=== PATIENT | male | born 1980 | race Caucasian/White ===

== ENCOUNTER 2017-02-11 16:10 | Inpatient (IN) | payer OTHER ==
[~2017-02-11] VITALS: Ht 188 cm; Wt 203.1 kg
[~2017-02-11 16:10] MED LIST: ALDACTONE25 MG PO; ALPRAZOLAM1 MG PO; ALTOPREV20 MG PO; AMBIEN CR12.5 MG PO; AMOXICILLIN/CL250 MG PO; AMOXICILLIN500 MG OR; ASPIRIN OR; ASPIRIN325 MG PO; AUGMENTIN500TAB PO; AUGMENTIN875TAB PO; BACTRIM DS1 TAB OR; BUMEX1 M1 PO; CETIRIZ/PSE1 TAB PO; CLINDAMYCIN300 M1 PO; CONTRAVE 8-90 M1 TAB PO; COREG25 MG PO; DICLOXACILL500 MG PO; DOXYCYC MONO100 M1 OR; ENALAPRIL10 MG PO; ENALAPRIL20 MG PO; FUROSEMIDE40 MG PO; GLUCOTROL5 MG PO; HUMALOG KWI100 MG/ML SC; HUMULI1 SC; HUMULIN R1 M1 SC; HYDROCHLORO25 MG/TAB PO; HYDROCHLOROT25 MG PO; HYDROXYZ HCL25 MG PO; INSULIN SC; K-TAB20 MEQ PO; LANTUS SOLOSTAR SC; LANTUS100 MG/ML SC; LASIX 40 MG TAB40 MG PO; LISINOPRIL20 MG OR; LISINOPRIL20 MG PO; LORTAB 1010 MG PO; LORTAB 5 OR; LORTAB 7.57.5 MG PO; LORTAB5 OR; LOSARTAN POT25 MG PO; LOVASTATIN20 M1 PO; LYRICA100 MG PO; LYRICA150 MG PO; LYRICA50 MG PO; MEDDOSEPAK OR; MEDDOSEPAK PO; METFORMIN HCL1000 MG OR; METFORMIN HCL1000 MG PO; METFORMIN500 MG PO; METOPROL TAR100 M1 PO; METOPROL TAR100 MG PO; METOPROL TAR25 MG PO; NAPROSYN500 MG PO; OXYCO/APAP1 TA5 PO; PEN NEEDLE1 SC; PERCOCET 5/325M1 TAB OR; PERCOCET 5/325M1 TAB PO; PERCOCET1 TA1 OR; ROBITUSS12 OR; ST JOSEPH AS81 MG OR; TEMAZEPAM30 MG PO; TRAMADOL HCL50 MG PO; TRICOR145 MG OR; TRICOR145 MG PO; ULTRAM50 MG OR; VASOTEC20 MG PO; VENTOLIN HFA IN; VICTOZA18 MG/3 ML SC; ZOLPIDEM10 M1 PO; ZPAK OR; ZPAK PO; [UNRECOGNIZED DRUG - OTHER] SC; [UNRECOGNIZED DRUG - OTHER] XX; [UNRECOGNIZED DRUG - REMARK] OR; [UNRECOGNIZED DRUG - REMARK] OR
[2017-02-11 16:47] LABS: HEMATOCRIT 27.8 % (39.0-50.0); HEMOGLOBIN 9.7 g/dl (14.0-18.0); IMMATURE GRANULOCYTES 1.2 % (0.0-1.0); MEAN CORPUSCULAR HGB 28.3 pG CALC (26.0-32.0); MEAN CORPUSCULAR HGB CONC 34.9 g/L CALC (32.0-36.0); NEUT# 5.52 thou/uL (1.82-7.42); RED BLOOD COUNT 3.43 mill/uL (4.70-6.10); RED CELL DISTRI WIDTH 14.6 % (11.5-15.5)
[2017-02-11 16:54] LABS: ALBUMIN 4.1 g/dL (3.2-5.0); BILIRUBIN, TOTAL 0.5 mg/dL (0.0-1.4); CALCIUM 9.8 mg/dL (8.4-10.2); CREATININE 2.9 mg/dL (0.7-1.3); POTASSIUM 4.3 mmol/l (3.5-5.1); TOTAL PROTEIN 8.3 g/dL (6.3-8.2)
[2017-02-11 19:17] VITALS: BP 112/64
[2017-02-11 23:15] VITALS: BP 119/73
[2017-02-12] MEDS ORDERED: LOSARTAN POT50 MG PO (03:49)
[2017-02-12 03:56] VITALS: BP 118/74
[2017-02-12 06:33] LABS: HEMATOCRIT 26.6 % (39.0-50.0); HEMOGLOBIN 8.9 g/dl (14.0-18.0); IMMATURE GRANULOCYTES 1.2 % (0.0-1.0); MEAN CELL VOLUME 82.9 fL CALC (80.0-100.0); MEAN CORPUSCULAR HGB 27.7 pG CALC (26.0-32.0); MEAN CORPUSCULAR HGB CONC 33.5 g/L CALC (32.0-36.0); NEUT# 4.92 thou/uL (1.82-7.42); RED BLOOD COUNT 3.21 mill/uL (4.70-6.10); RED CELL DISTRI WIDTH 14.6 % (11.5-15.5)
[2017-02-12 06:54] LABS: ALBUMIN 3.6 g/dL (3.2-5.0); BILIRUBIN, TOTAL 0.4 mg/dL (0.0-1.4); CALCIUM 9.2 mg/dL (8.4-10.2); CREATININE 3.2 mg/dL (0.7-1.3); POTASSIUM 4.3 mmol/l (3.5-5.1); TOTAL PROTEIN 7.3 g/dL (6.3-8.2)
[2017-02-12 08:03] VITALS: BP 120/60
[2017-02-12 11:11] VITALS: BP 115/70
[2017-02-12 15:18] VITALS: BP 112/73
[2017-02-12 21:45] VITALS: BP 143/69
[2017-02-12 23:20] VITALS: BP 145/77
[2017-02-13 03:46] VITALS: BP 120/69
[2017-02-13 07:00] LABS: ALBUMIN 3.7 g/dL (3.2-5.0); BILIRUBIN, TOTAL 0.4 mg/dL (0.0-1.4); CALCIUM 9.3 mg/dL (8.4-10.2); CREATININE 2.6 mg/dL (0.7-1.3); POTASSIUM 4.1 mmol/l (3.5-5.1); TOTAL PROTEIN 7.4 g/dL (6.3-8.2)
[2017-02-13 08:23] VITALS: BP 122/77
[2017-02-13 09:16] LABS: C-REACTIVE PROTEIN 4.7 mg/dL (0-0.9)
[2017-02-13 11:42] VITALS: BP 117/78
[2017-02-13 13:34] LABS: HEMATOCRIT 29.2 % (39.0-50.0); HEMOGLOBIN 9.3 g/dl (14.0-18.0); IMMATURE GRANULOCYTES 0.9 % (0.0-1.0); MEAN CELL VOLUME 85.9 fL CALC (80.0-100.0); MEAN CORPUSCULAR HGB 27.4 pG CALC (26.0-32.0); MEAN CORPUSCULAR HGB CONC 31.8 g/L CALC (32.0-36.0); NEUT# 4.94 thou/uL (1.82-7.42); RED BLOOD COUNT 3.4 mill/uL (4.70-6.10); RED CELL DISTRI WIDTH 15.1 % (11.5-15.5)
[2017-02-13 15:38] VITALS: BP 131/68
[2017-02-13 19:55] VITALS: BP 138/82
[2017-02-14] VITALS (7 sets, daily range): BP systolic 93–151; BP diastolic 54–82
[2017-02-15] VITALS (7 sets, daily range): BP systolic 92–149; BP diastolic 61–84
[2017-02-16] VITALS (11 sets, daily range): BP systolic 98–139; BP diastolic 57–86
[2017-02-16 06:47] LABS: HEMATOCRIT 29.1 % (39.0-50.0); HEMOGLOBIN 9.4 g/dl (14.0-18.0); IMMATURE GRANULOCYTES 1.7 % (0.0-1.0); MEAN CELL VOLUME 85.8 fL CALC (80.0-100.0); MEAN CORPUSCULAR HGB 27.7 pG CALC (26.0-32.0); MEAN CORPUSCULAR HGB CONC 32.3 g/L CALC (32.0-36.0); NEUT# 4.54 thou/uL (1.82-7.42); RED BLOOD COUNT 3.39 mill/uL (4.70-6.10); RED CELL DISTRI WIDTH 14.9 % (11.5-15.5)
[2017-02-16 07:07] LABS: ALBUMIN 3.8 g/dL (3.2-5.0); BILIRUBIN, TOTAL 0.4 mg/dL (0.0-1.4); CALCIUM 9.5 mg/dL (8.4-10.2); CREATININE 2.3 mg/dL (0.7-1.3); TOTAL PROTEIN 7.7 g/dL (6.3-8.2)
[2017-02-16] MEDS ORDERED: METOLAZONE5 MG PO (09:46)
[2017-02-17 00:20] VITALS: BP 98/60
[2017-02-17 04:55] VITALS: BP 127/71
[2017-02-17] MEDS ORDERED: ZOSYN IV (08:43)
[2017-02-17] MEDS ORDERED: DILAUDID4 MG PO (08:44)
[2017-02-17 09:26] VITALS: BP 142/76
[2017-02-17 12:58] VITALS: BP 116/61
[2017-02-17 16:24] VITALS: BP 155/74
[2017-02-17 19:40] VITALS: BP 145/68
[2017-02-18 00:30] VITALS: BP 117/71
[2017-02-18 03:35] VITALS: BP 120/85
[2017-02-18 07:45] VITALS: BP 101/64
[2017-02-18 09:27] VITALS: BP 101/64
== END 2017-02-18 13:02 | DRG 623 ==
LOC: ENPENDDIS → ED 16:10 → ED-I 16:57 → ED 17:16 → MS2 17:17
PROVIDERS: Emergency Medicine; ADMIT Internal Medicine Geriatric Medicine; ATTEND Internal Medicine Geriatric Medicine
PROC: 02HV33Z Insertion of Infusion Device into Superior Vena Cava, Percutaneous Approach (ICD-10-PCS; principal; 2017-02-12)
PROC: B518ZZA Fluoroscopy of Superior Vena Cava, Guidance (ICD-10-PCS; 2017-02-12)
PROC: 0JBR0ZZ Excision of Left Foot Subcutaneous Tissue and Fascia, Open Approach (ICD-10-PCS; 2017-02-16)
DX: E11.621 Type 2 diabetes mellitus with foot ulcer (principal); L97.422 Non-pressure chronic ulcer of left heel and midfoot with fat layer exposed; E11.22 Type 2 diabetes mellitus with diabetic chronic kidney disease; E11.42 Type 2 diabetes mellitus with diabetic polyneuropathy; Z68.43 Body mass index [BMI] 50.0-59.9, adult; E11.65 Type 2 diabetes mellitus with hyperglycemia; E66.01 Morbid (severe) obesity due to excess calories; I12.9 Hypertensive chronic kidney disease with stage 1 through stage 4 chronic kidney disease, or unspecified chronic kidney disease; N18.9 Chronic kidney disease, unspecified; E78.5 Hyperlipidemia, unspecified; M19.90 Unspecified osteoarthritis, unspecified site; I25.10 Atherosclerotic heart disease of native coronary artery without angina pectoris; B96.89 Other specified bacterial agents as the cause of diseases classified elsewhere; Z79.4 Long term (current) use of insulin
CPT/HCPCS: J1650

== ENCOUNTER 2017-03-11 15:44 | Inpatient (IN) | payer OTHER ==
[~2017-03-11] VITALS: Ht 188 cm; Wt 197.0 kg
[2017-03-11] VITALS (8 sets, daily range): BP systolic 135–189; BP diastolic 81–92
[~2017-03-11 15:44] MED LIST changes: +DILAUDID4 MG PO; +LOSARTAN POT50 MG PO; +METOLAZONE5 MG PO; +ZOSYN IV
[2017-03-12 04:40] VITALS: BP 122/81
[2017-03-12 04:48] LABS: HEMATOCRIT 30.8 % (39.0-50.0); HEMOGLOBIN 9.7 g/dl (14.0-18.0); IMMATURE GRANULOCYTES 0.5 % (0.0-1.0); MEAN CELL VOLUME 87.5 fL CALC (80.0-100.0); MEAN CORPUSCULAR HGB 27.6 pG CALC (26.0-32.0); MEAN CORPUSCULAR HGB CONC 31.5 g/L CALC (32.0-36.0); NEUT# 3.28 thou/uL (1.82-7.42); RED BLOOD COUNT 3.52 mill/uL (4.70-6.10); RED CELL DISTRI WIDTH 16.2 % (11.5-15.5)
[2017-03-12 05:01] LABS: ALBUMIN 3.6 g/dL (3.2-5.0); BILIRUBIN, TOTAL 0.4 mg/dL (0.0-1.4); POTASSIUM 4.4 mmol/l (3.5-5.1)
[2017-03-12 08:06] VITALS: BP 104/58
[2017-03-12 08:41] VITALS: BP 160/58
[2017-03-12 10:52] VITALS: BP 148/80
[2017-03-12] MEDS ORDERED: NOVOLIN 70/30 SC (11:15)
[2017-03-12] MEDS ORDERED: HUMALOG100 UNIT/M (11:19)
[2017-03-12] MEDS ORDERED: ROCEPHIN 2 GM2 GM IV (13:59)
[2017-03-12] MEDS ORDERED: FLEXERIL5 M1 PO (14:06)
[2017-03-12] MEDS ORDERED: ROPINIROLE0.5 MG PO (14:06)
== END 2017-03-12 18:17 | DRG 623 ==
LOC: ENPENDDIS → MS2 15:44
PROVIDERS: ADMIT Internal Medicine Geriatric Medicine; ATTEND Internal Medicine Geriatric Medicine
PROC: 0JBR0ZZ Excision of Left Foot Subcutaneous Tissue and Fascia, Open Approach (ICD-10-PCS; principal; 2017-03-11)
PROC: 02HV33Z Insertion of Infusion Device into Superior Vena Cava, Percutaneous Approach (ICD-10-PCS; 2017-03-12)
PROC: B518ZZA Fluoroscopy of Superior Vena Cava, Guidance (ICD-10-PCS; 2017-03-12)
DX: E11.628 Type 2 diabetes mellitus with other skin complications (principal); L03.116 Cellulitis of left lower limb; L97.422 Non-pressure chronic ulcer of left heel and midfoot with fat layer exposed; N18.4 Chronic kidney disease, stage 4 (severe); E11.621 Type 2 diabetes mellitus with foot ulcer; E11.22 Type 2 diabetes mellitus with diabetic chronic kidney disease; Z68.43 Body mass index [BMI] 50.0-59.9, adult; E11.65 Type 2 diabetes mellitus with hyperglycemia; E11.42 Type 2 diabetes mellitus with diabetic polyneuropathy; E66.01 Morbid (severe) obesity due to excess calories; I12.9 Hypertensive chronic kidney disease with stage 1 through stage 4 chronic kidney disease, or unspecified chronic kidney disease; K21.9 Gastro-esophageal reflux disease without esophagitis; F17.200 Nicotine dependence, unspecified, uncomplicated; G25.81 Restless legs syndrome; Z79.4 Long term (current) use of insulin

== ENCOUNTER 2017-11-05 15:12 | Inpatient (IN) | payer OTHER ==
[~2017-11-05] VITALS: Ht 188 cm; Wt 225.6 kg
[~2017-11-05 15:12] MED LIST changes: +FLEXERIL5 M1 PO; +HUMALOG100 UNIT/M; +NOVOLIN 70/30 SC; +ROCEPHIN 2 GM2 GM IV; +ROPINIROLE0.5 MG PO
[2017-11-05 16:15] VITALS: BP 134/67
[2017-11-05 17:01] LABS: HEMATOCRIT 30.9 % (39.0-50.0); HEMOGLOBIN 9.6 g/dl (14.0-18.0); IMMATURE GRANULOCYTES 0.6 % (0.0-1.0); MEAN CELL VOLUME 89.6 fL CALC (80.0-100.0); MEAN CORPUSCULAR HGB 27.8 pG CALC (26.0-32.0); MEAN CORPUSCULAR HGB CONC 31.1 g/L CALC (32.0-36.0); NEUT# 4.73 thou/uL (1.82-7.42); RED BLOOD COUNT 3.45 mill/uL (4.70-6.10)
[2017-11-05 18:00] LABS: CREATININE 2.6 mg/dL (0.7-1.3)
[2017-11-05 20:25] VITALS: BP 143/84
[2017-11-06 04:55] VITALS: BP 150/68
[2017-11-06 05:25] LABS: ALBUMIN 3.6 g/dL (3.2-5.0); BILIRUBIN, TOTAL 0.4 mg/dL (0.0-1.4); CREATININE 2.5 mg/dL (0.7-1.3); POTASSIUM 4.7 mmol/l (3.5-5.1)
[2017-11-06 08:08] VITALS: BP 135/74
[2017-11-06 09:23] LABS: URINE BILIRUBIN - DIPSTICK NEGATIVE (NEGATIVE); URINE BLOOD DIPSTICK SMALL (NEGATIVE); URINE COLOR YELLOW; URINE GLUCOSE - DIPSTICK NEGATIVE (NEGATIVE); URINE KETONE NEGATIVE (NEGATIVE); URINE LEUK ESTERASE NEGATIVE (NEGATIVE); URINE NITRITE - DIPSTICK NEGATIVE (Negative); URINE PH 5.5 (4.5-8.0); URINE PROTEIN - DIPSTICK 100 mg/dL (NEG-TRACE); URINE SPECIFIC GRAVITY 1.015; URINE UROBILINOGEN - DIPSTICK 0.2 E.U./dL (0.2)
[2017-11-06 09:24] LABS: URINE CLARITY SL CLOUDY
[2017-11-06 09:25] LABS: URINE MUCUS MODERATE hpf (NONE-FEW)
[2017-11-06 16:55] VITALS: BP 148/81
[2017-11-07 04:35] VITALS: BP 163/93
[2017-11-07 05:00] LABS: HEMATOCRIT 32.2 % (39.0-50.0); HEMOGLOBIN 10.2 g/dl (14.0-18.0); IMMATURE GRANULOCYTES 0.5 % (0.0-1.0); MEAN CELL VOLUME 88.7 fL CALC (80.0-100.0); MEAN CORPUSCULAR HGB 28.1 pG CALC (26.0-32.0); MEAN CORPUSCULAR HGB CONC 31.7 g/L CALC (32.0-36.0); NEUT# 4.01 thou/uL (1.82-7.42); RED BLOOD COUNT 3.63 mill/uL (4.70-6.10); RED CELL DISTRI WIDTH 14.9 % (11.5-15.5)
[2017-11-07 05:07] LABS: ALBUMIN 3.5 g/dL (3.2-5.0); BILIRUBIN, TOTAL 0.4 mg/dL (0.0-1.4); CREATININE 2.3 mg/dL (0.7-1.3); POTASSIUM 4.4 mmol/l (3.5-5.1)
[2017-11-07 07:48] VITALS: BP 133/93
[2017-11-07 08:57] VITALS: BP 133/93
[2017-11-07] MEDS ORDERED: VANCOMYCIN IV (09:10)
[2017-11-08] MEDS ORDERED: LYRICA50 MG PO (16:11)
[2017-11-08] MEDS ORDERED: PAXIL30 MG PO (16:12)
[2017-11-08] MEDS ORDERED: XANAX1 MG PO (16:12)
== END 2017-11-07 10:50 | DRG 292 ==
LOC: MS2 15:12
PROVIDERS: ADMIT Internal Medicine Geriatric Medicine; ATTEND Internal Medicine Geriatric Medicine
DX: I13.0 Hypertensive heart and chronic kidney disease with heart failure and stage 1 through stage 4 chronic kidney disease, or unspecified chronic kidney disease (principal); I50.1 Left ventricular failure, unspecified; N18.4 Chronic kidney disease, stage 4 (severe); E10.22 Type 1 diabetes mellitus with diabetic chronic kidney disease; E10.621 Type 1 diabetes mellitus with foot ulcer; Z68.43 Body mass index [BMI] 50.0-59.9, adult; L97.419 Non-pressure chronic ulcer of right heel and midfoot with unspecified severity; E10.65 Type 1 diabetes mellitus with hyperglycemia; E66.01 Morbid (severe) obesity due to excess calories; I25.10 Atherosclerotic heart disease of native coronary artery without angina pectoris; J44.9 Chronic obstructive pulmonary disease, unspecified; G47.30 Sleep apnea, unspecified; K21.9 Gastro-esophageal reflux disease without esophagitis; F41.9 Anxiety disorder, unspecified; F32.9 Major depressive disorder, single episode, unspecified; M19.90 Unspecified osteoarthritis, unspecified site; E03.9 Hypothyroidism, unspecified; M85.80 Other specified disorders of bone density and structure, unspecified site; B95.61 Methicillin susceptible Staphylococcus aureus infection as the cause of diseases classified elsewhere; Z79.4 Long term (current) use of insulin
CPT/HCPCS: J3370

== ENCOUNTER 2018-01-07 10:43 | Emergency (ER) | payer OTHER ==
[~2018-01-07] VITALS: Ht 188 cm; Wt 215.0 kg
[~2018-01-07 10:43] MED LIST changes: +PAXIL30 MG PO; +VANCOMYCIN IV; +XANAX1 MG PO
[2018-01-07 11:30] LABS: HEMATOCRIT 31.2 % (39.0-50.0); HEMOGLOBIN 10.1 g/dl (14.0-18.0); IMMATURE GRANULOCYTES 1.3 % (0.0-1.0); MEAN CELL VOLUME 86.4 fL CALC (80.0-100.0); MEAN CORPUSCULAR HGB CONC 32.4 g/L CALC (32.0-36.0); NEUT# 5.89 thou/uL (1.82-7.42); RED BLOOD COUNT 3.61 mill/uL (4.70-6.10)
[2018-01-07] MEDS ORDERED: AMBIEN5 MG PO (11:40)
[2018-01-07] MEDS ORDERED: FERR SULFATE325 MG PO (11:40)
[2018-01-07] MEDS ORDERED: LYRICA25 MG PO (11:41)
[2018-01-07] MEDS ORDERED: TORSEMIDE20 M1 PO (11:41)
[2018-01-07] MEDS ORDERED: HEMOCYTE PLU PO (11:42)
[2018-01-07] MEDS ORDERED: ENALAPRIL5 MG PO (11:42)
[2018-01-07] MEDS ORDERED: FLEXERIL5 MG PO (11:43)
[2018-01-07] MEDS ORDERED: CLONIDINE0.1 MG PO (11:43)
[2018-01-07] MEDS ORDERED: ROPINIROLE0.5 MG PO (11:44)
[2018-01-07] MEDS ORDERED: CYMBALTA60 MG PO (11:44)
[2018-01-07] MEDS ORDERED: DULOXETINE HCL30 MG PO (11:45)
[2018-01-07] MEDS ORDERED: LOVASTATIN40 M1 PO (11:45)
[2018-01-07] MEDS ORDERED: SANTYL250 UNIT/G (11:46)
[2018-01-07] MEDS ORDERED: MUPIROCIN21 (11:46)
[2018-01-07 11:56] LABS: CREATININE 3.6 mg/dL (0.7-1.3)
[2018-01-07 11:57] LABS: POTASSIUM 5.4 mmol/l (3.5-5.1)
[2018-01-07 15:44] VITALS: BP 125/60
== END 2018-01-07 15:40 | disposition short-term general hospital (02) | DRG 292 ==
LOC: ED 10:43
PROVIDERS: Family Medicine
PROC: 0T9B70Z Drainage of Bladder with Drainage Device, Via Natural or Artificial Opening (ICD-10-PCS; principal; 2018-01-07)
PROC: 02HV33Z Insertion of Infusion Device into Superior Vena Cava, Percutaneous Approach (ICD-10-PCS; 2018-01-07)
PROC: 0BH17EZ Insertion of Endotracheal Airway into Trachea, Via Natural or Artificial Opening (ICD-10-PCS; 2018-01-07)
PROC: 5A09357 Assistance with Respiratory Ventilation, Less than 24 Consecutive Hours, Continuous Positive Airway Pressure (ICD-10-PCS; 2018-01-07)
DX: I13.0 Hypertensive heart and chronic kidney disease with heart failure and stage 1 through stage 4 chronic kidney disease, or unspecified chronic kidney disease (principal); L03.115 Cellulitis of right lower limb; E11.22 Type 2 diabetes mellitus with diabetic chronic kidney disease; I50.9 Heart failure, unspecified; E66.01 Morbid (severe) obesity due to excess calories; N18.9 Chronic kidney disease, unspecified; G47.30 Sleep apnea, unspecified; G25.81 Restless legs syndrome; M19.90 Unspecified osteoarthritis, unspecified site; J44.9 Chronic obstructive pulmonary disease, unspecified; K21.9 Gastro-esophageal reflux disease without esophagitis; E03.9 Hypothyroidism, unspecified

== ENCOUNTER 2018-02-02 13:31 | Observation (INO) | payer OTHER ==
[~2018-02-02] VITALS: Ht 188 cm; Wt 204.0 kg
[2018-02-02] VITALS (8 sets, daily range): BP systolic 135–157; BP diastolic 67–85
[~2018-02-02 13:31] MED LIST changes: +AMBIEN5 MG PO; +CLONIDINE0.1 MG PO; +CYMBALTA60 MG PO; +DULOXETINE HCL30 MG PO; +ENALAPRIL5 MG PO; +FERR SULFATE325 MG PO; +FLEXERIL5 MG PO; +HEMOCYTE PLU PO; +LOVASTATIN40 M1 PO; +LYRICA25 MG PO; +MUPIROCIN21; +SANTYL250 UNIT/G; +TORSEMIDE20 M1 PO
--- NOTE | 2018-02-02 13:49 | NUR ---
PT CAME IN DIRECT ADMIT VIA WHEELCHAIR AT SIDE. WEB ANALYST IN ROOM FOR STAND BY ASSIST TO SCALE AND THEN TO BED. SAFETY PRECAUTIONS REINFORCED AND CALL LIGHT IN REACH.
[2018-02-02 14:37] LABS: HEMOGLOBIN 8.1 g/dl (14.0-18.0); IMMATURE GRANULOCYTES 0.7 % (0.0-1.0); MEAN CELL VOLUME 93.1 fL CALC (80.0-100.0); MEAN CORPUSCULAR HGB 27.9 pG CALC (26.0-32.0); NEUT# 3.61 thou/uL (1.82-7.42); RED BLOOD COUNT 2.9 mill/uL (4.70-6.10); RED CELL DISTRI WIDTH 17.8 % (11.5-15.5)
[2018-02-02 14:56] LABS: CREATININE 2.3 mg/dL (0.7-1.3); POTASSIUM 4.9 mmol/l (3.5-5.1)
--- NOTE | 2018-02-02 15:14 | NUR ---
CALLED DR. RODRIGUEZ RE: PT ABG PH [phone]. NO ORDRES RECEIVED AT THIS TIME.
[2018-02-02] MEDS ORDERED: DOXYCYC MONO100 M2 PO (16:51)
[2018-02-02] MEDS ORDERED: LORTAB 1010 MG PO (16:52)
[2018-02-02] MEDS ORDERED: DIFLUCAN100 MG PO (16:52)
[2018-02-02] MEDS ORDERED: TIZANIDINE4 MG PO (16:53)
[2018-02-02] MEDS ORDERED: [UNRECOGNIZED DRUG - OTHER] IV (16:55)
[2018-02-02] MEDS ORDERED: PIPER IV (16:55)
--- NOTE | 2018-02-02 17:38 | NUR ---
BLOOD TRANSFUSION STARTED AND EXLPAIN THE SIDE OF EFFECT. PT VERBALIZED UNDERSTANDING. ASSESSMENT DONE . RESPS EVEN AND UNLABORED. PT HAS WOUND VAC ON RIGHT FOOT FROM HOME. PT STATED THAT HOME HEALTH CHANGE IT TODAY. PT DENIES ANY OTHER NEEDS AT THIS TIME. CALL LIGHT IN REACH.
--- NOTE | 2018-02-02 19:52 | NUR ---
PT IN BED WITH EYES CLOSED, RESPONDS EASILY TO VERBAL COMMAND, A/O X3, RESPIRATIONS EVEN AND UNLABORED ON RA. 1ST UNIT OF PRBC'S COMPLETE AT THIS TIME. WOUND VAC IN PLACE TO RIGHT LEG, CONTINUOUS 125MMHG, DRESSING WAS CHANGED TODAY BY HH PER FAMILY. DENIES PAIN AT THIS TIME, ENCOURAGED TO USE CALL LIGHT FOR ASSISTANCE. WILL CONTINUE TO MONITOR.
--- NOTE | 2018-02-02 20:30 | NUR ---
LASIX IV GIVEN PER MAR AFTER 1ST UNITS OF PRBC'S, 2ND UNITS SPIKED BY JAKOB RATLIFF, INFUSING WITH NO COMPLICATIONS, CALL LIGHT IN REACH.
--- NOTE | 2018-02-02 21:44 | NUR ---
ACCUCHECK 206, COVERED WITH 4UNITS OF NOVULOG INSULIN SQ, TOLERATED WELL. C/O RIGHT FOOT PAIN 5/10, MEDICATED WITH DILAUDID 2MG PO. WEARING OWN CPAP FROM HOME. 2ND UNIT OF PRBC INFUSING WITH NO COMPLICAITONS, CALL LIGHT IN REACH.
--- NOTE | 2018-02-02 22:26 | NUR ---
2ND UNIT OF PRBC COMPLETE, TOLERATED WELL.
[2018-02-03] VITALS (11 sets, daily range): BP systolic 120–146; BP diastolic 57–89
--- NOTE | 2018-02-03 00:30 | NUR ---
OOB TO BATHROOM WITH STEADY GAIT, VOIDING CLEAR YELLOW URINE, BACK TO BED. CALL LIGHT IN REACH.
[2018-02-03 00:35] LABS: URINE BILIRUBIN - DIPSTICK NEGATIVE (NEGATIVE); URINE BLOOD DIPSTICK SMALL (NEGATIVE); URINE COLOR YELLOW; URINE GLUCOSE - DIPSTICK NEGATIVE (NEGATIVE); URINE KETONE NEGATIVE (NEGATIVE); URINE LEUK ESTERASE NEGATIVE (NEGATIVE); URINE NITRITE - DIPSTICK NEGATIVE (Negative); URINE PROTEIN - DIPSTICK 100 mg/dL (NEG-TRACE); URINE UROBILINOGEN - DIPSTICK 0.2 E.U./dL (0.2)
[2018-02-03 00:38] LABS: URINE CLARITY CLEAR
[2018-02-03 00:45] LABS: URINE MUCUS FEW hpf (NONE-FEW); URINE SQUAMOUS EPITHELIAL CELL FEW EPI/hpf (0-FEW); URINE WBC 0-2 WBC/hpf (0-5)
--- NOTE | 2018-02-03 04:29 | NUR ---
MORNING BLOOD WORK DRAWN FROM PICC LINE, GREAT BLOOD RETURN, PT DROWSY, RESPONDS EASILY TO VERBAL COMMAND, WEARING CPAP FROM HOME.
[2018-02-03 05:30] LABS: HEMATOCRIT 26.3 % (39.0-50.0); HEMOGLOBIN 8.1 g/dl (14.0-18.0); IMMATURE GRANULOCYTES 0.5 % (0.0-1.0); MEAN CELL VOLUME 91.6 fL CALC (80.0-100.0); MEAN CORPUSCULAR HGB 28.2 pG CALC (26.0-32.0); MEAN CORPUSCULAR HGB CONC 30.8 g/L CALC (32.0-36.0); NEUT# 4.05 thou/uL (1.82-7.42); RED BLOOD COUNT 2.87 mill/uL (4.70-6.10); RED CELL DISTRI WIDTH 17.4 % (11.5-15.5)
[2018-02-03 05:46] LABS: ALBUMIN 2.9 g/dL (3.2-5.0); BILIRUBIN, TOTAL 0.4 mg/dL (0.0-1.4); CREATININE 2.1 mg/dL (0.7-1.3); POTASSIUM 4.7 mmol/l (3.5-5.1)
--- NOTE | 2018-02-03 07:00 | NUR ---
BEDSIDE REPORT RECEIVED BY MAHESH. PT IS SITTING IN THE SIDE OF THE BED WITH NO S/S OF DISTRESS NOTED. PT DENIES NEEDS AT THIS TIME. CALL LIGHT IN REACH.
--- NOTE | 2018-02-03 07:32 | NUR ---
FIRST UNIT OF BLOOD BEGIN. EXPLAIN TO PT OF SIDE OF EFFECTS . PT VERBALZIED UNDERSTANING. ASSESSMENT DONE RESPS EVEN AND UNLABORED. POC DISCUSSED WITH PT SAFETY PRECAUTIONS REINFORCED AND CALL LIGHT IN REACH.
--- NOTE | 2018-02-03 10:57 | NUR ---
SECOND UNIT BEGIN. PT DENIES NEEDS A T THIS TIME. NO S/S OF DISTRESS NOTED.
--- NOTE | 2018-02-03 12:00 | NUR ---
PT IS SITTING IN RECLINER EATING HIS LUNCH WITH NO S/S OF DISTRESS NOTED. PT HAS HIS WOUND VAC IN PLACE ON RIGHT FOOT. PT DENIES NEEDS AT THIS TIME. CALL LIGHT IN REACH.
--- NOTE | 2018-02-03 13:14 | NUR ---
SECOND UNIT OF BLOOD DONE. PT DENIES NEEDS AT THIS TIME. CALL LIGHT IN REACH.
--- NOTE | 2018-02-03 16:00 | NUR ---
PT IS RESTING IN BED WITH NO S/S OF DISTRESS NOTED. RIGHT LEG ELEVATED. CALL LIGHT IN REACH.
--- NOTE | 2018-02-03 19:15 | NUR ---
PT RESTING IN BED. FAMILY IN ROOM. PT IS ALERT AND ORIENTED [id number]. SHIFT ASSESSMENT COMPLETED AT THIS TIME. PT REQUESTING TO BE DISCHARGED. INFORMED PT THAT WE WERE AWAITING LAB RESULTS AND I WOULD NOTIFY MD FOR ORDERS. PT VERBALIZED UNDERSTANDING. CALL LIGHT IN REACH. WILL CONTINUE TO MONITOR
[2018-02-03 19:17] LABS: HEMATOCRIT 31.5 % (39.0-50.0); HEMOGLOBIN 9.9 g/dl (14.0-18.0)
--- NOTE | 2018-02-03 19:30 | NUR ---
DR RODRIGUEZ NOTIFIED OF LAB RESULTS AND PT REQUEST TO GO HOME. DC ORDERS RECEIVED. PT NOTIFIED.
--- NOTE | 2018-02-03 19:58 | NUR ---
Discharged to: Home Discharged via: Wheelchair Accompanied by: family D/C Condition: stable Diet: 1800 MANDY ADA Diet modification: low sodium Activity: As tolerated Home Health: OTHER Follow up appointment: FOLOW UP WITH DR RODRIGUEZ IN 1 WEEK Special instructions: FOLLOW UP WITH DR RODRIGUEZ'S OFFICE NEXT WEEK. HAVE LABS DRAWN AT [facility] ON 02/08/18 Medications: SEE MEDICATION RECONCILIATION FORM Prescriptions Given: Please notify your physician if you received either one of these vaccinations: Influenza Vaccine - Date: Pneumococcal Vaccine - Date: Patient Education Materials Provided: Yes - Food and Drug Interaction Guide No - Anticoagulation Education Booklet Contains the following information: 1. Compliance issues 2. Dietary advice 3. Follow up monitoring 4. Potential for adverse drug reactions and interactions No - Smoking Cessation Booklet IF SYMPTOMS WORSEN, OR IF YOU HAVE ADDITIONAL QUESTIONS, PLEASE CONTACT YOUR PERSONAL PHYSICIAN OR SEEK EMERGENCY CARE. CALL YOUR PHYSICIAN IF YOU DO NOT GET RELIEF FROM THE PAIN MEDICATIONS PRESCRIBED, OR IF THE INTENSITY OF PAIN INCREASES, OR IF PAIN IS INTERFERING WITH ACTIVITY OR REST. IF YOU SMOKE, YOU NEED TO QUIT. IT IS GOOD FOR YOU AND EVERYONE AROUND YOU! Your physician and [facility] care about you and your health. The facts are clear. Smoking causes 1 out of 5 deaths in the [place] each year. It is the major preventable cause of emphysema, lung cancer, chronic bronchitis, heart disease and stroke. Quitting is one of the best things you can ever do for yourself and those you love. What better time to quit than now! You've already been cigarette free during your stay. Studies have shown that the first 48 hours of quitting are the toughest. Just a few of the benefits your body begins to experience are blood pressure returns to normal, the carbon monoxide level in your blood drops to normal, your chance of heart attack decreases, and your ability to smell and taste is enhanced. Here are some resources that you may find helpful: [place] [employer] [place] [employer] www.lungusa.org www.cancer.org [place] [employer] [place] Department of Health (Tobacco Prevention and Control Program) www.americanheart.org www.[place].state.fl.us Finally don't forget that your doctor may be able to help you. Whichever method you choose will be good for you. IF YOU HAVE A DIAGNOSIS OF CONGESTIVE HEART FAILURE, THERE ARE SEVERAL ADDITIONAL INSTRUCTIONS FOR YOU TO FOLLOW UPON DISCHARGE FROM THE HOSPITAL. Weigh yourself every day and if weight gain is greater than 2 pounds in a day, call your physican. If you experience worsening symptoms such as: Problems with breathing or shortness of breath Ankle/foot/leg swelling Unexplained weight gain greater than 2 pounds Call your physician or come to the emergency room. IF YOU HAVE A DIAGNOSIS OF STROKE, THERE ARE SEVERAL ADDITIONAL INSTRUCTIONS FOR YOU TO FOLLOW: A stroke occurs when something happens to interrupt the steady flow of blood to the brain, like a clot or a burst in a blood vessel. Brain cells quickly begin to . These INCREASE your chance of having a STROKE: * Smoking * High blood pressure * Diabetes * Obesity WARNING SIGNS OR SYMPTOMS: * Sudden weakness on one side of body. * Sudden confusion, trouble speaking or understanding. * Sudden trouble seeing. * Sudden trouble walking or loss of balance. * Sudden severe headache with no known cause. CALL 04-30- At Any Sign of Stroke. You can beat a stroke. Disabilities can be prevented or limited, but you have must go to the Emergency Department immediately. Go in an Ambulance. Save Time. Be Seen Faster! If you were admitted to the hospital for a stroke After DISCHARGE you must: * Keep ALL follow up appointments. * Take your medications as ordered by your doctor. * Do not take any other drugs without checking with your doctor first. * Do not drive unless your doctor says it is okay. * Call your doctor with any questions or concerns. IF YOU WERE DISCHARGED ON COUMADIN/WARFARIN ANTICOAGULATION THERAPY, THERE ARE SEVERAL ADDITIONAL INSTRUCTIONS FOR YOU TO FOLLOW: Anticoagulants are medications that help prevent blood clots. They are often prescribed for people with certain heart, lung and blood vessel diseases to help prevent heart attacks and strokes. IMPORTANT Anticoagulation medications have been used for many years, but it can be difficult to manage. That's because many factors can affect how they work-including small changes in dose or dose timing, what you eat or drink, other medications and stress. You and your doctor must work closely together to manage this important medication. * Take your medicine EXACTLY as instructed by your doctor. * You must have your blood drawn for PT/INR to monitor your medication. * Do not take any new medications, vitamins or herbal supplements without asking your doctor first. FOODS: * Eat the same amount of foods that contain Vitamin K every day. * Avoid or limit alcohol. * Avoid major changes in diet or notify your doctor first. FOLLOW UP MONITORING: See your physician within one week to monitor your condition. You will need to have blood tests performed to monitor the medication. DRUG INTERACTIONS: * Diet and medications can affect the PT/INR level. * Do not take or discontinue any medication or over the counter medication unless your doctor okays. * Warfarin/Coumadin increases the risk of bleeding. CALL YOUR PHYSICIAN IF: If you notice any signs of increased bleedin. Excessive bruising. 2. Abnormal bleeding from nose or gums. 3. [place], red or dark brown urine. 4. Minor bleeding or bright red blood from the bowel. CALL 911 OR GO TO THE HOSPITAL IF: 1. You have black tarry stools. 2. Sudden dizziness, faintness or weakness. 3. Cold or numbness in arm or leg. 4. Sudden chest pain. 5. Trouble talking or moving one side of body. 6. Coughing or vomiting bright red blood. 7. Severe headache or stomach pain. 8. Serious fall or hit to the head. Visit our website at [email or web address] You are going home today. Depending on your insurance coverage, you may be receiving a bill from the hospital for your hospital stay. If you have any question about your bill, please call the Business Office at [phone] or contact us at our web address: [email or web address]. If applicable, I have received my medication information as recommeded by my provider upon discharge. I have read and understand the above discharge instructions. Pt Signature: Date: Time: Witnessed by: Date: Time: Complete the record of communication to the next provider below. These discharge instructions, including discharge medications, is to be faxed to the next provider at the time of the patient's discharge. ____These instructions faxed to next Provider (Provider Name) on (Date) @ (Time) . ____The second provider involved in patient care following discharge has been faxed this information. These instructions faxed to (Provider-Home Health, Physical Therapy, Agency) on (Date) @ (Time) . OR ____Patient unable/unwilling to verbalize who the next provider of care will be, instructed patient to take these instructions to next appointment with healthcare provider.
--- NOTE | 2018-02-03 20:20 | NUR ---
Discharge instructions given. Patient verbalizes understanding of same. Discharged in stable condition via Wheelchair to Home with family. All belongings sent with pt.
== END 2018-02-03 20:20 | disposition home or self-care (01) | DRG 812 ==
LOC: MS2 13:31
PROVIDERS: ADMIT Internal Medicine Geriatric Medicine; ATTEND Internal Medicine Geriatric Medicine
PROC: 30233N1 Transfusion of Nonautologous Red Blood Cells into Peripheral Vein, Percutaneous Approach (ICD-10-PCS; principal; 2018-02-02)
PROC: 30233N1 Transfusion of Nonautologous Red Blood Cells into Peripheral Vein, Percutaneous Approach (ICD-10-PCS; 2018-02-02)
PROC: 30233N1 Transfusion of Nonautologous Red Blood Cells into Peripheral Vein, Percutaneous Approach (ICD-10-PCS; 2018-02-03)
PROC: 30233N1 Transfusion of Nonautologous Red Blood Cells into Peripheral Vein, Percutaneous Approach (ICD-10-PCS; 2018-02-03)
DX: D50.9 Iron deficiency anemia, unspecified (principal); E10.22 Type 1 diabetes mellitus with diabetic chronic kidney disease; E10.42 Type 1 diabetes mellitus with diabetic polyneuropathy; M86.8X7 Other osteomyelitis, ankle and foot; E66.01 Morbid (severe) obesity due to excess calories; Z68.43 Body mass index [BMI] 50.0-59.9, adult; I13.0 Hypertensive heart and chronic kidney disease with heart failure and stage 1 through stage 4 chronic kidney disease, or unspecified chronic kidney disease; L97.429 Non-pressure chronic ulcer of left heel and midfoot with unspecified severity; N18.4 Chronic kidney disease, stage 4 (severe); E10.621 Type 1 diabetes mellitus with foot ulcer; E10.69 Type 1 diabetes mellitus with other specified complication; J44.9 Chronic obstructive pulmonary disease, unspecified; G47.30 Sleep apnea, unspecified; M19.90 Unspecified osteoarthritis, unspecified site; I50.9 Heart failure, unspecified; E03.9 Hypothyroidism, unspecified; K21.9 Gastro-esophageal reflux disease without esophagitis; G25.81 Restless legs syndrome; Z79.4 Long term (current) use of insulin
CPT/HCPCS: G0378; P9016

== ENCOUNTER 2018-06-15 17:59 | Emergency (ER) | payer OTHER ==
[~2018-06-15] VITALS: Ht 188 cm; Wt 222.3 kg
[~2018-06-15 17:59] MED LIST changes: +DIFLUCAN100 MG PO; +DOXYCYC MONO100 M2 PO; +PIPER IV; +TIZANIDINE4 MG PO; +[UNRECOGNIZED DRUG - OTHER] IV
[2018-06-15] MEDS ORDERED: B121000 MCG PO (18:40)
[2018-06-15 18:44] LABS: HEMATOCRIT 31.6 % (39.0-50.0); HEMOGLOBIN 9.7 g/dl (14.0-18.0); IMMATURE GRANULOCYTES 0.7 % (0.0-5.0); MEAN CELL VOLUME 87.8 fL CALC (80.0-100.0); MEAN CORPUSCULAR HGB 26.9 pG CALC (26.0-32.0); MEAN CORPUSCULAR HGB CONC 30.7 g/L CALC (32.0-36.0); NEUT# 4.04 thou/uL (1.82-7.42); RED BLOOD COUNT 3.6 mill/uL (4.70-6.10); RED CELL DISTRI WIDTH 16.4 % (11.5-15.5)
[2018-06-15] MEDS ORDERED: BUMETANIDE1 MG PO (18:46)
[2018-06-15 18:57] LABS: ALBUMIN 3.3 g/dL (3.2-5.0); BILIRUBIN, TOTAL 0.3 mg/dL (0.0-1.4); CREATININE 2.5 mg/dL (0.7-1.3); POTASSIUM 4.9 mmol/l (3.5-5.1); TOTAL PROTEIN 6.6 g/dL (6.3-8.2)
[2018-06-15] MEDS ORDERED: CARAFATE PO (19:09)
[2018-06-15] MEDS ORDERED: PROBIOTIC1 TAB PO (19:10)
[2018-06-15] MEDS ORDERED: OMEPRAZOLE20 MG PO (19:10)
[2018-06-15] MEDS ORDERED: METOPROL TAR100 MG PO (19:13)
[2018-06-15 20:05] VITALS: BP 148/82
== END 2018-06-15 20:05 | disposition home or self-care (01) | DRG 699 ==
LOC: ED 17:59 → ED-I 19:28 → ED 20:05
PROVIDERS: Emergency Medicine
DX: E10.22 Type 1 diabetes mellitus with diabetic chronic kidney disease (principal); I13.0 Hypertensive heart and chronic kidney disease with heart failure and stage 1 through stage 4 chronic kidney disease, or unspecified chronic kidney disease; N18.4 Chronic kidney disease, stage 4 (severe); I50.9 Heart failure, unspecified; E66.01 Morbid (severe) obesity due to excess calories; G47.30 Sleep apnea, unspecified; G25.81 Restless legs syndrome; M19.90 Unspecified osteoarthritis, unspecified site; J44.9 Chronic obstructive pulmonary disease, unspecified; K21.9 Gastro-esophageal reflux disease without esophagitis; E03.9 Hypothyroidism, unspecified

== ENCOUNTER 2018-06-28 17:17 | Observation (INO) | payer OTHER ==
[~2018-06-28] VITALS: Ht 185.4 cm; Wt 218.0 kg
[~2018-06-28 17:17] MED LIST changes: +B121000 MCG PO; +BUMETANIDE1 MG PO; +CARAFATE PO; +OMEPRAZOLE20 MG PO; +PROBIOTIC1 TAB PO
[2018-06-28 17:30] VITALS: BP 150/84
[2018-06-28 18:32] LABS: HEMATOCRIT 32.7 % (39.0-50.0); HEMOGLOBIN 10.3 g/dl (14.0-18.0); IMMATURE GRANULOCYTES 1.3 % (0.0-5.0); MEAN CELL VOLUME 87.2 fL CALC (80.0-100.0); MEAN CORPUSCULAR HGB 27.5 pG CALC (26.0-32.0); MEAN CORPUSCULAR HGB CONC 31.5 g/L CALC (32.0-36.0); NEUT# 2.65 thou/uL (1.82-7.42); RED BLOOD COUNT 3.75 mill/uL (4.70-6.10)
[2018-06-28 18:43] LABS: CREATININE 2.3 mg/dL (0.7-1.3); POTASSIUM 4.8 mmol/l (3.5-5.1)
[2018-06-28 20:00] VITALS: BP 160/89
[2018-06-28 22:04] LABS: INFLUENZA A NONE DETECTED (NONE DETECT); INFLUENZA B NONE DETECTED (NONE DETECT)
[2018-06-29 05:31] LABS: HEMATOCRIT 33.4 % (39.0-50.0); HEMOGLOBIN 10.2 g/dl (14.0-18.0); IMMATURE GRANULOCYTES 1.2 % (0.0-5.0); MEAN CELL VOLUME 89.8 fL CALC (80.0-100.0); MEAN CORPUSCULAR HGB 27.4 pG CALC (26.0-32.0); MEAN CORPUSCULAR HGB CONC 30.5 g/L CALC (32.0-36.0); NEUT# 1.91 thou/uL (1.82-7.42); RED BLOOD COUNT 3.72 mill/uL (4.70-6.10); RED CELL DISTRI WIDTH 17.2 % (11.5-15.5)
[2018-06-29 05:50] LABS: ALBUMIN 3.4 g/dL (3.2-5.0); BILIRUBIN, TOTAL 0.3 mg/dL (0.0-1.4); CHOLESTEROL HDL RATIO 5.6 (<4.4 (CALC)); CREATININE 2.4 mg/dL (0.7-1.3); POTASSIUM 4.5 mmol/l (3.5-5.1); TOTAL PROTEIN 6.9 g/dL (6.3-8.2)
[2018-06-29 07:39] VITALS: BP 175/90
[2018-06-29 08:31] LABS: URINE BILIRUBIN - DIPSTICK NEGATIVE (NEGATIVE); URINE BLOOD DIPSTICK MODERATE (NEGATIVE); URINE COLOR YELLOW; URINE GLUCOSE - DIPSTICK 100 mg/dL (NEGATIVE); URINE KETONE NEGATIVE (NEGATIVE); URINE LEUK ESTERASE NEGATIVE (NEGATIVE); URINE NITRITE - DIPSTICK NEGATIVE (Negative); URINE PROTEIN - DIPSTICK >=300 mg/dL (NEG-TRACE); URINE SPECIFIC GRAVITY 1.025; URINE UROBILINOGEN - DIPSTICK 0.2 E.U./dL (0.2)
[2018-06-29 08:34] LABS: URINE CLARITY CLEAR
[2018-06-29 08:42] LABS: URINE WBC 0-2 WBC/hpf (0-5)
[2018-06-29 08:43] LABS: URINE SQUAMOUS EPITHELIAL CELL FEW EPI/hpf (0-FEW)
[2018-06-29 09:50] VITALS: BP 175/90
[2018-06-29] MEDS ORDERED: ROCEPHIN 2 GM2 GM IV (12:33)
== END 2018-06-29 14:30 | disposition home or self-care (01) | DRG 194 ==
LOC: MS2 17:17
PROVIDERS: ADMIT Internal Medicine Geriatric Medicine; ATTEND Internal Medicine Geriatric Medicine
PROC: 02HV33Z Insertion of Infusion Device into Superior Vena Cava, Percutaneous Approach (ICD-10-PCS; principal; 2018-06-29)
PROC: B518ZZA Fluoroscopy of Superior Vena Cava, Guidance (ICD-10-PCS; 2018-06-29)
DX: J18.9 Pneumonia, unspecified organism (principal); I13.0 Hypertensive heart and chronic kidney disease with heart failure and stage 1 through stage 4 chronic kidney disease, or unspecified chronic kidney disease; J44.0 Chronic obstructive pulmonary disease with (acute) lower respiratory infection; Z68.43 Body mass index [BMI] 50.0-59.9, adult; L97.419 Non-pressure chronic ulcer of right heel and midfoot with unspecified severity; E10.621 Type 1 diabetes mellitus with foot ulcer; I50.9 Heart failure, unspecified; N18.9 Chronic kidney disease, unspecified; E66.01 Morbid (severe) obesity due to excess calories; K21.9 Gastro-esophageal reflux disease without esophagitis; E03.9 Hypothyroidism, unspecified; M19.90 Unspecified osteoarthritis, unspecified site; I25.10 Atherosclerotic heart disease of native coronary artery without angina pectoris; E10.22 Type 1 diabetes mellitus with diabetic chronic kidney disease; E10.65 Type 1 diabetes mellitus with hyperglycemia; D50.9 Iron deficiency anemia, unspecified; G25.81 Restless legs syndrome; G47.30 Sleep apnea, unspecified; Z79.4 Long term (current) use of insulin
CPT/HCPCS: G0378; G0379

== ENCOUNTER 2018-07-08 12:03 | Inpatient (IN) | payer OTHER ==
[2018-07-08] VITALS (10 sets, daily range): BP systolic 118–177; BP diastolic 58–100
[~2018-07-08] VITALS: Ht 185.4 cm; Wt 231.0 kg
--- NOTE | 2018-07-08 12:10 | NUR ---
PT ARRIVES VIA EMS FROM HOME FOR SOB
--- NOTE | 2018-07-08 12:15 | NUR ---
AUDIBLE WHEEZING NOTED, RT PAGED.
--- NOTE | 2018-07-08 12:30 | NUR ---
PATIENT PLACED ON 3L/MIN OF O2 VIA NASAL CANNULA. PATIENT REPORTS BEING ON HOME O2 AT 2L/MIN, UPON ARRIVAL TO ED PATIENT O2 SAT 85% ON 2L/MIN OF O2. MULTIPLE ABRASIONS NOTED TO BILATERAL LOWER EXTERMITIES; REDNESS AND SWELLING NOTED TO SKIN FOLD TO LOWER ABD.
[2018-07-08 12:32] LABS: HEMATOCRIT 33.9 % (39.0-50.0); HEMOGLOBIN 10.2 g/dl (14.0-18.0); IMMATURE GRANULOCYTES 1.4 % (0.0-5.0); MEAN CELL VOLUME 89.7 fL CALC (80.0-100.0); MEAN CORPUSCULAR HGB CONC 30.1 g/L CALC (32.0-36.0); NEUT# 5.52 thou/uL (1.82-7.42); RED BLOOD COUNT 3.78 mill/uL (4.70-6.10); RED CELL DISTRI WIDTH 16.7 % (11.5-15.5)
[2018-07-08] MEDS ORDERED: HEPARIN SODIUM IV (12:42)
[2018-07-08] MEDS ORDERED: SANTYL250 UNIT/G TOP (12:44)
[2018-07-08 12:49] LABS: ALBUMIN 3.6 g/dL (3.2-5.0); BILIRUBIN, TOTAL 0.3 mg/dL (0.0-1.4); CREATININE 3.5 mg/dL (0.7-1.3); TOTAL PROTEIN 7.8 g/dL (6.3-8.2)
[2018-07-08 12:56] LABS: POTASSIUM 5.7 mmol/l (3.5-5.1)
[2018-07-08] MEDS ORDERED: PROCRIT 1010000 U/ML IJ (12:56)
--- NOTE | 2018-07-08 13:10 | NUR ---
PATIENT PLACED ON BI-PAP.
--- NOTE | 2018-07-08 13:44 | NUR ---
WHEEZING NOTED TO BILATERAL LUNGS.
--- NOTE | 2018-07-08 13:49 | NUR ---
RECVD REPORT FROM GAUDENCIO MCCABE IN ER.
--- NOTE | 2018-07-08 13:49 | NUR ---
REPORT CALLED TO GAUDENCIO PATHAK.
--- NOTE | 2018-07-08 14:35 | NUR ---
PATIENT TRANSPORTED TO ICU WITH SUPERVISOR TYPE PHOTOGRAPHY AND O2 IN PLACE. TRANSPORTED VIA HOSPITAL BED X2 STAFF ASSIST. GAUDENCIO PATHAK AT BEDSIDE. CARE RELINQUISHED.
--- NOTE | 2018-07-08 14:37 | NUR ---
PT ARRIVED TO ICU 3 ON OVERSIZED BED FROM MSU VIA ED. PT AWAKE & ALERT BUT RESTLESS. PT SLAMMING ARMS & LEGS AROUND BED, STATES THAT IS HIS RESTLESS LEG SYNDROME.
--- NOTE | 2018-07-08 15:02 | NUR ---
PT STATES HE CAME TO ER FROM HOME FOR SOB. STATES HE DID NOT TAKE HIS HOME MEDS THIS AM BC HE WAS SLEEPING. ALLERGY TO CIPRO (GETS A RASH). PT CURRENTLY HAS A PICC LINE IN RIGHT ARM FOR OUTPT ABX FOR PNA. PT WAS RECENTLY DC FROM THIS HOSPITAL. USES [facility]. STATES HAS BEEN CLEARED OF MRSA. BREATHING IS FAST/EVEN/LABORED, DIMINISHED/WHEEZING THROUGHT ALL LOBES. WEAK PULSES x4. NSR ON TELE. HX OF FREQUENT FALLS. MULTIPLE BRUISING & SKIN TEARS. CURRENTLY HAS WOUNDS TO LEFT HEEL & RIGHT LATERAL FOOT. C/O CHRONIC PAIN TO LOWER BACK AND ACUTE PAIN TO BILATERAL LEGS & BILATERAL RIBS. TAKES LORTAB AT HOME FOR PAIN. SPEAKS ESTONIAN W/CLEAR SPEECH. ABD OBESE/SOFT/NONTENDER. DENIES N/V/D. STATES "NORMAL" BM THIS AM. PT IS A&Ox4. PT ARRIVED AGITATED. APOLOGIZING FOR PTS BEHAVIOR. WENT DOWN TO CAR TO GET PTS HOME BIPAP MACHINE.
--- NOTE | 2018-07-08 15:30 | NUR ---
CALLED DOWN TO [facility] FOR MEAL PER PT REQUEST. PT GIVEN A PITCHER OF WATER.
--- NOTE | 2018-07-08 16:19 | NUR ---
CALLED DR RODRIGUEZ FOR PAIN MEDICATION. HE WILL PUT IN ORDERS IN 5 MINS.
--- NOTE | 2018-07-08 16:34 | NUR ---
PT HAD 500CC CLEAR YELLOW OUTPUT.
--- NOTE | 2018-07-08 16:45 | NUR ---
R FOOT WUOND IS BLEEDING. DRESSING APPLIED.
--- NOTE | 2018-07-08 17:02 | NUR ---
RT @BEDSIDE FOR BREATHING TREATMENT.
--- NOTE | 2018-07-08 17:07 | NUR ---
LAB @BEDSIDE FOR LA DRAW.
--- NOTE | 2018-07-08 17:25 | NUR ---
multiple medications requiring clarification per cardinal Davon Juarez; Dr Sifuentes present on unit; meds reviewed and orders received via RBVO
--- NOTE | 2018-07-08 17:32 | NUR ---
PT STATES HE DOES NOT WANT THE HYDROCODONE/ACETAMINOPHEN IT WONT WORK. STATES HE ONLY WANTS DILAUDID.
--- NOTE | 2018-07-08 17:49 | NUR ---
LABS DRAWN FROM [facility].
--- NOTE | 2018-07-08 18:40 | NUR ---
CHANGED PICC LINE DRESSING TO RIGHT ARM USING STERILE PROCEDURE.
--- NOTE | 2018-07-08 19:05 | NUR ---
PT. FOUND SITTING UP IN BED IN NO DISTRESS. FLOOR CLEANSED OF BLOOD AT THIS TIME. RESPS EVEN AND UNLABORED. SKIN WARM AND DRY. WHEEZES TO UPPERS BILAT, DIMINISHED BASES POSSIBLY DUE TO MORBIDLY OBESE BODY HABITUS. PULSES POSITIVE THROUGHOUT. ABDOMEN MOEBIDLY OBESE, NON-TENDER, STATES LAST BM THIS AM. MAE. PEREZ. MULTIPLE WOUNDS NOTED TO LOWER EXT BILAT. PT. ASKING IF ITS TIME FOR HIS PAIN MEDICATIONS AGAIN. INFORMED THAT HIS NEXT DOSE IS DUE AT AROUND 2200. PT. PROVIDED WITH WATER PER HIS REQUEST AT THIS TIME.
--- NOTE | 2018-07-08 19:55 | NUR ---
PT. STANDING AT BEDSIDE TO URINATE AT THIS TIME. NO DISTRESS. RESPS REMAIN EVEN AND UNLABORED. BP ELEVATED. WILL CONTINUE TO ASSESS.
--- NOTE | 2018-07-08 21:00 | NUR ---
PT. SITTING UP IN BED IN NO DISTRESS. UP AND DOWN FROM BED TO SITTING AT BEDSIDE. CARDIAC LEADS REPLACED AT THIS TIME. ZITHROMAX INFUSING AT THIS TIME WITHOUT SX OF INFILTRATION OR EXTRAVASATION.
--- NOTE | 2018-07-08 22:36 | NUR ---
PT. HIGHLY SEDATE AND DROWSY. DROPPED HIS PHONE WHILE SPEAKING TO SOMEONE. ENCOURAGED TO REST BACK IN BED. WILL CONTINUE TO ASSESS.
--- NOTE | 2018-07-08 22:52 | NUR ---
NEB TREATMENT IN PROGRESS AT THIS TIME. PT. CONTINUES TO SIT AT BEDSIDE.
[2018-07-09] VITALS (13 sets, daily range): BP systolic 84–156; BP diastolic 54–98
--- NOTE | 2018-07-09 00:17 | NUR ---
PT. RESTING IN CHAIR WITH EYES CLOSED ON HIS HOME CPAP PER NORMAL SETTINGS. PT ON 2L THROUGH THE C-PAP. SPO2 IS 100% ON THE CPAP. HR STABLE 68. REMAINS IN NO DISTRESS AT THIS TIME.
--- NOTE | 2018-07-09 00:35 | NUR ---
PT. CONTINUES TO REST IN RECLINER WITH EYES CLOSED AT THIS TIME. LABS OBTAINED VIA PICC AND FLUSED PER PROTOCOL. WILL CONTINUE TO MONITOR.
--- NOTE | 2018-07-09 02:15 | NUR ---
PT. CONTINUES TO SLEEP IN RECLINER NEXT TO THE BED. HOME CPAP REMAINS IN PLACE. VSS. BP/HR STABLE. SPO2 STABLE. PT. REMAINS IN NO DISTRESS. CALL LIGHT REMAINS WITHIN REACH. WILL CONTINUE TO ASSESS.
--- NOTE | 2018-07-09 04:40 | NUR ---
PT. REMAINS RESTING IN RECLINER NEXT TO THE BED. PT. HAS REMOVED HIS HOME CPAP AT THIS TIME. SPO2 FLUCTUATES OFF THE HOME C-PAP. REMAINS INTERMITTENTLY DROWSY. REMAINS SINUS IN THE 60'S. NO DISTRESS.
--- NOTE | 2018-07-09 06:24 | NUR ---
PT. MEDICATED PER PHYSICIAN ORDERS. LABS OBTAINED AT THIS TIME FROM PICC LINE. LIMB LEADS REPLACED AT THIS TIME. CALL LIGHT REMAINS WITHIN REACH. WILL CONTINUE TO MONITOR.
--- NOTE | 2018-07-09 06:45 | NUR ---
RECIEVED REPORT FROM GAUDENCIO FONSECA. ASSUMED PT CARE.
[2018-07-09 06:51] LABS: HEMATOCRIT 31.9 % (39.0-50.0); HEMOGLOBIN 9.5 g/dl (14.0-18.0); IMMATURE GRANULOCYTES 1.7 % (0.0-5.0); MEAN CELL VOLUME 89.4 fL CALC (80.0-100.0); MEAN CORPUSCULAR HGB 26.6 pG CALC (26.0-32.0); MEAN CORPUSCULAR HGB CONC 29.8 g/L CALC (32.0-36.0); NEUT# 5.1 thou/uL (1.82-7.42); RED BLOOD COUNT 3.57 mill/uL (4.70-6.10); RED CELL DISTRI WIDTH 16.6 % (11.5-15.5)
[2018-07-09 07:11] LABS: ALBUMIN 3.3 g/dL (3.2-5.0); BILIRUBIN, TOTAL 0.2 mg/dL (0.0-1.4); CREATININE 3.3 mg/dL (0.7-1.3); TOTAL PROTEIN 7.1 g/dL (6.3-8.2)
[2018-07-09 07:12] LABS: POTASSIUM 5.7 mmol/l (3.5-5.1)
--- NOTE | 2018-07-09 07:16 | NUR ---
BUN of 89; result reported to Gypsy Baron RN
--- NOTE | 2018-07-09 07:40 | NUR ---
PT A&OX3, ABLE TO MAKE NEEDS KNOWN. PERRL. SR ON TELEMETRY, HR-72. PT DENIES CHEST PAIN OR DISTRESS AT THIS TIME, SOB UPON EXERTION. RESPIRATIONS EVEN/UNLABORED, SAO2@96% ON 2LPM VIA NC. LS WHEEZING THROUGHOUT. ABDOMEN SOFT/DISTENDED/NON-TENDER. BSX4 ACTIVE. PT STATES LAST BM 07-08-18. PT PASSING GAS. BLE NOTED WITH +4 EDEMA FROM KNEES DOWN, DRESSING TO BILAT FEET CDI. 2L/PICC/RUE SL, NO BLOOD RETURN ON RED, FLUSHES WITHOUT DIFFICULTY. PT REFUSES AARON'S BLE. CALL LIGHT IN REACH, WILL MONITOR.
--- NOTE | 2018-07-09 08:23 | NUR ---
RECIEVED BUN 89, DR. RODRIGUEZ NOTIFIED. DIETARY ON UNIT, BREAKFAST TRAY SET UP. CALL LIGHT IN REACH. PT REMAINS SITTING ON SIDE OF BED PER PT REQUEST FOR COMFORT.
--- NOTE | 2018-07-09 08:29 | NUR ---
PT BED NOTED WITH BLK FLAKES IN IT, PT ASKED IF HE WAS CHEWING TOBACCO, PT STATED NO NOT AT THIS TIME, BUT DOES ROUTINELY. PT REMINDING THAT HE NEEDS TO REFRAIN FROM TOBACCO WHILE ON UNIT AND ASK IF HE WOULD LIKE A NICOTINE PATCH, PT STATED NO , NOT AT THIS TIME. WILL MONITOR.
--- NOTE | 2018-07-09 09:10 | NUR ---
DR. RODRIGUEZ AT BEDSIDE FOR ASSESSMENT AND TO DISCUSS PLAN OF CARE.
--- NOTE | 2018-07-09 09:15 | NUR ---
PT TAKEN DOWN TO XRAY VIA W/C. PT TOLERATED WELL, BACK TO ROOM 3 @9:25AM.
--- NOTE | 2018-07-09 10:00 | NUR ---
PT SITTING UP IN RECLINER, RESPIRATIONS EVEN/UNLABORED. O2@2PLM VIA NC. CALL LIGHT IN REACH.
--- NOTE | 2018-07-09 11:30 | NUR ---
DIETARY ON UNIT, LUNCH TRAY SET UP.
--- NOTE | 2018-07-09 11:40 | NUR ---
FAMILY AT BEDSIDE
--- NOTE | 2018-07-09 14:18 | NUR ---
PT REMAIN SITTING IN RECLINER, FAMILY REMAINS AT THE BEDSIDE. PT GIVEN DILAUDID ORDERED PER PT REQUEST. FOR PAIN OF "6" ON 1-10 SCALE LOWER BACK. CALL LIGHT IN REACH. WILL MONITOR.
--- NOTE | 2018-07-09 16:13 | NUR ---
PT RESTING IN RECLINER WITH EYES CLOSED, FAMILY REMAINS AT BEDSIDE. RESPIRATIONS EVEN/UNLABORED. CALL LIGHT IN REACH, WILL MONITOR.
--- NOTE | 2018-07-09 18:31 | NUR ---
PT FAMILY LEFT BEDSIDE. PT REMAINS SITTING IN RECLINER PER REQUEST FOR COMFORT. RESPIRATIONS EVEN/UNLABORED, IV ROCHEPIN INFUSING ORDERED, NO S/S OF INFILTRATION OR REDNESS AT SITE. CALL LIGHT IN REACH, WILL MONITOR.
--- NOTE | 2018-07-09 20:20 | NUR ---
PT IS IN RECLINER SLEEPING, AWOKE TO MY VOICE. POC DISCUSSED AND PAIN MEDICATION SCHEDULE DISCUSSED. PT ASSESSED AT THIS TIME. LUNG SOUNDS ARE CLEAR/DIM AT THIS TIME. ABD VERY DISTENDED FIRM NON-TENDER, LOCX4. PT IS VERY GROGGY AT THIS TIME FALLING BACK TO SLEEP DURING ASSESSMENT.
--- NOTE | 2018-07-09 22:03 | NUR ---
PT MEDICATED FOR PAIN REPORTED / IN BACK AND RIBS/SIDE. HE HAS BEEN ASKING FOR PAIN MEDICATION. I EXPLAINED TO HIM THAT I WAS UNABLE TO GIVE IT UNTIL THIS TIME DUE TO LOW BP OF 84/62. AT THIS PRESENT TIME HIS BP BEEN 125/76 AND HOLDING IN THE 120'S/70'S. WILL CONTINUE TO MONITOR.
--- NOTE | 2018-07-09 22:10 | NUR ---
PT IS EATING HIS SNACK AT THIS TIME. DENIED ANY OTHER NEEDS
[2018-07-10] VITALS (12 sets, daily range): BP systolic 108–174; BP diastolic 61–91
--- NOTE | 2018-07-10 00:15 | NUR ---
PT APPEARS TO BE SLEEPING AT THIS TIME. NO S/S OF DISTRESS NOTED. CALL LIGHT W/IN REACH ON BST
--- NOTE | 2018-07-10 02:10 | NUR ---
PT APPEARS TO BE SLEEPING AT THIS TIME. CPAP IS OFF AND LAYING ON PT'S CHEST
--- NOTE | 2018-07-10 03:45 | NUR ---
pt medicated for pain reported in "ribs" 04/08. pt requested diet giner-javi/provided. Denies any other needs at this time. call light is at side.
--- NOTE | 2018-07-10 05:00 | NUR ---
PT IS UP MOVING AROUND ROOM. NO S/S OF DISTRESS NOTED AT THIS TIME.
--- NOTE | 2018-07-10 06:15 | NUR ---
PT MEDICATED ORDERS PROVIDE. PICC FLUSHED AND HEPARANIZED/PATENT. PT REQUESTING PAIN MEDICATION, INFORMED DILAUDID IS NOT YET AVAILABLE, BUT THAT I COULD BRING HIM LORTAB/REFUSED STATING HE WILL WAIT. PT LEFT SITTING ON SIDE OF BED W/LIGHTS AND TV ON. DENIES ANY OTHER NEEDS, CALL LIGHT W/IN REACH.
--- NOTE | 2018-07-10 06:45 | NUR ---
RECIEVED REPORT FROM GAUDENCIO ISRAEL. ASSUMED PT CARE.
--- NOTE | 2018-07-10 07:30 | NUR ---
PT A&0X 3, ABLE TO MAKE NEEDS KNOWN.PERRL. SR ON TELEMETRY, HR- 75. PT DENIES CHEST PAIN, SOB OR DISTRESS AT THIS TIME. RESPIRATIONS EVEN/UNLABORED WITH EXERTIONAL SOB. LS WITH RHONCHI IN UPPPER LOBES, DIMMINISHED IN THE LOWER LOBES. SA02@95% ON 2LPM VIA NC. ABDOMEN SOFT/DISTENDED, NON-TENDER. BSX4 ACTIVE. PT REPORTS BM 11--18. PT VOIDS IN URINAL WITHOUT DIFFICULTY. DL/PICC@ RUE/SL, FLUSHES WITHOUT DIFFICULTY, PT CONTINUES WITH +4 GENERALIZED EDEMA, PT RESTING IN RECLINER, CALL LIGHT IN REACH, WILL MONITOR.
--- NOTE | 2018-07-10 07:45 | NUR ---
DIETARY ON UNIT, BREAKFAST TRAY SET UP.
--- NOTE | 2018-07-10 08:30 | NUR ---
DR. RODRIGUEZ AT BEDSIDE TO ASSESS AND DISCUSS PLAN OF CARE, NEW ORDERS RECIEVED.
--- NOTE | 2018-07-10 09:00 | NUR ---
PT EDUCATED ON THE PROPER USE VS NON-COMPLIANCE OF WEARING HIS 02 VIA NC AND THE CPAP. DR. RODRIGUEZ AND THIS MAGNETIC LOCATER ENCOURAGED PT TO WEAR CPAP FOR NAPPING AND SLEEPING. PT VERBALIZES UNDERSTANDING. PT AGREES TO WEAR CPAP WITH NAPPING IN THE CHAIR THROUGH TO LUNCH.
--- NOTE | 2018-07-10 09:15 | NUR ---
PT AGAIN FOUND WITH NO [address] WHILE SLEEPING IN THE CHAIR. EDUCATED AGAIN, PT VERBALIZED UNDERSTANDING, YET REMAINS WITH OFF.
--- NOTE | 2018-07-10 09:30 | NUR ---
DRESSING TO BLE (FEET) CHANGED, CLEAN DRY DRESSING PER DR. RODRIGUEZ. WOUNDS CDI, NO WEEPING NOTED. PT TOLERATED WELL. TELFA 2X2 APPLIED, COVERED WITH KERLEX, SECURED WITH COBAN. CALL LIGHT IN REACH, WILL MONITOR.
--- NOTE | 2018-07-10 10:00 | NUR ---
PT RESTING IN RECLINER WITH EYES CLOSED, NO 02 ON AT THIS TIME. RESPIRATIONS EVEN/UNLABORED.
--- NOTE | 2018-07-10 10:32 | NUR ---
PT STANDING IN ROOM AT BEDSIDE, PT STATES " I JUST WANT TO STAND FOR A LITTLE." PT WITH STEADY GAIT AND BALANCE. WILL MONITOR.
--- NOTE | 2018-07-10 11:32 | NUR ---
DIETARY ON UNIT, LUNCH TRAY SET UP.
--- NOTE | 2018-07-10 12:30 | NUR ---
FAMILY AT BEDSIDE
--- NOTE | 2018-07-10 13:00 | NUR ---
PT RESTING IN BED WITH EYES CLOSED, 02 OFF AT THIS TIME.
--- NOTE | 2018-07-10 14:00 | NUR ---
PT ASSISTED TO BATHROOM, LG BM. THEN BACK TO RECLINER. FAMILY REMAINS AT BEDSIDE. PT MEDICATED FOR BACK AND RIB PAIN "6" ON 1-10 SCALE PER ORDERS. CALL LIGHT IN REACH, WILL MONITOR.
--- NOTE | 2018-07-10 16:00 | NUR ---
PT RESTING IN RECLINER, SA02@94% ON 2LPM VIA NC. PT AT BEDSIDE. PT OFFERS NO COMPLAINTS AT THIS TIME.
--- NOTE | 2018-07-10 17:00 | NUR ---
PT SPOUSE ASKING WHY PT IS SLEEPING SO MUCH, ASKING FOR UPDATE. AFTER SPEAKING WITH PT, PT GAVE PERMISSION TO UPDATE . UPDATED ON LABS, PT NON-COMPLIANCE WITH 02 AND CPAP. FAMILY REMAIN AT BEDSIDE, PT RESTING IN RECLINER WITH EYES CLOSED. RESPIRATIONS EVEN/UNLABORED, 02@2LPM VIA NC. SA02@ 94%. CALL LIGHT IN REACH. WILL MONITOR.
--- NOTE | 2018-07-10 18:00 | NUR ---
FAMILY REMAINS AT BEDSIDE. PT TRANSFERRED BACK TO BED, RESPIRATIONS EVEN/UNLABORED. OFFERS NO COMPLAINTS AT THIS TIME. FAMILY TAKING PT DIRTY CLOTHES HOME. CALL LIGHT IN REACH, WILL MONITOR.
--- NOTE | 2018-07-10 19:30 | NUR ---
PATIENT FOUND SITTING UP IN RECLINER ON ROOM AIR. GROGGY BUT STILL ASKING FOR PAIN MEDS. STATES LEFT RIB AND BACK PAIN 7/10 ON PAIN SCALE. VS TAKEN AND RECORDED. O2 SAT 95% ON ROOM AIR. PATIENT IS EXTREMELY OBESE. LUNGS ARE CLEAR AND DIMINISHED-PATIENT IS VERY OBESE. STARES THAT HE HAD BM DAY. VOIDING QS CLEAR YELLOW URINE IN URINAL. PATIENT WITH BLE PITTING EDEMA. ENCOURAGED PATIENT TO KEEP LEGS ELEVATED WHEN HE IS ABLE. TELE MONITORING IN PLACE. DOUBLE LUMEN PICC INTACT TO RIGHT UPPER ARM. PATIENT STATES THAT IT WAS PUT IN LAST WEEK BEFORE COMING INTO THE HOSPITAL. STATES THAT HE WAS RECIEVING OUTPATIENT ANTIBIOTICS FOR PNEUMONIA. ZITHRO FINISHING AND BOTH PORTS FLUSHED WITH GOOD BLOOD RETURN FROM EACH PORT. PATIENT HAS DRESSINGS TO BRANDI FEET-STATES THAT THE DRESSINGS WERE CHANGED BY DR. RODRIGUEZ TODAY ON DAYSHIFT. SAFETY PRECAUTIONS REINFORCED.CALL LIGHT IN PLACE. WILL CONT TO MONITOR.
--- NOTE | 2018-07-10 21:00 | NUR ---
[id number]. MEDICATED WITH 70/30 80 UNITS ORDERED AND WITH NOVALOG 2UNITS PER SLIDING SCALE. PROVIDED AND ATE HS SNACK. PATIENT CONT TO BE UP AND DOWN. O2 AND C-PAP ON AND OFF. CALL LIGHT IN REACH. WILL CONT TO MONITOR.
--- NOTE | 2018-07-10 22:00 | NUR ---
PATIENT ASSISTED BACK TO THE BED. DRESSING CHANGED TO RIGHT UPPER ARM PICC DUE TO DRESSING BEING LOOSE. SITE APPEARS HEALTHY AT THIS TIME WITH NO SIGNS OF INFECTION. NO REDNESS, SWELLING OR TENDERNESS AT THE SITE. DSD APPLIED. PORTS FLUSHED WITH GOOD BLOOD RETURN FROM BOTH PORTS. PATIENT CONT TO HAVE SOB WITH ANY ACTIVITY AND UP AND DOWN IN THE BED DUE TO SOB. ASKING FOR PAIN MEDS AND NOTIFIED TOO EARLY AT THIS TIME. PATIENT CONT TO DOOZE ON AND OFF WITH O2 ON AND OFF AND C-PAP ON AND OFF EVEN AFTER SEVERAL DISCUSSIONS ABOUT USING THE O2 SUPPLIMENTS. CALL LIGHT IN REACH. WILL CONT TO MONITOR.
--- NOTE | 2018-07-10 23:32 | NUR ---
PATIENT RESTING IN BED WITH C-PAP IN PLACE AT THIS TIME. PATIENT C/O PAIN TO LEFT RIBS AND BACK. OFFERED LORTAB BUT PATIENT DECLINES-STATES THAT THEY DON'T WORK. MEDICATED WITH DILAUDID 2MG IVP ORDERED FOR PAIN. SAFETY PRECAUTIONS REINFORCED. CALL LIGHT IN REACH. WILL CONT TO MONITOR.
--- NOTE | 2018-07-11 | NUR ---
PATIENT STATES RELIEF FROM DILAUDID. ASSISTED TO BR TO VOID 900CC OF CLEAR YELLOW URINE. ACCU-CHECK 141 AT THIS TIME. CONT TO DOOZE OFF AND ON. ENCOURAGED TO USE O2 AND/OR C-PAP. CONT TO SIT ON SIDE OF THE BED WITH FEET DEPENDANT. CONT WITH SEVERE BLE EDEMA. CALL LIGHT IN REACH. WILL CONT TO MONITOR.
[2018-07-11 00:12] VITALS: BP 146/78
[2018-07-11 02:00] VITALS: BP 133/84
--- NOTE | 2018-07-11 02:09 | NUR ---
PATIENT SITTING UP ON THE SIDE OF THE BED AT THIS TIME WITH O2 AND C-PAP BOTH OFF WITH O2 SAT OF 96% UNTIL HE DOOZES OFF AND THEN DESATS INTO THE 80'S-THEN WAKES BACK UP. PATIENT REFUSES TO WEAR EITHER THE O2 OR THE C-PAP FOR ANY LENGTH OF TIME. PATIENT WITH NON-PRODUCTIVE COUGH. SAFETY PRECAUTIONS REINFORCED. CALL LIGHT IN REACH. WILL CONT TO MONITOR.
[2018-07-11 03:53] VITALS: BP 140/77
--- NOTE | 2018-07-11 04:14 | NUR ---
PATIENT IS BACK SITTING IN THE RECLINER WITH FEET DEPENDANT AND O2 OFF. WHEN DOOZING PATIENT CONT TO DESAT IN THE LOW 80'S/ REINFORCED TEACHING ABOUT SUPPLIMENTAL O2 BUT CONT TO BE NOPN-COMPLIANT. BS-78. PATIENT PROVIDED WITH HATTIE MONZON. CALL LIGHT IN REACH. WILL CONT TO MONITOR.
--- NOTE | 2018-07-11 05:30 | NUR ---
PATIENT REMAINS UOP IN THE RECLINER WITH O2 VIA NASAL CANNULA IN PLACE. O2 SAT ARE IN THE MID 90'S WITH O2 IN PLACE. NEB TREATMENT WAS GIVEN. BS RE-CHECK AND IS 93 AT THIS TIME. AM LABS DRAWN FROM PICC WITHOUT ANY DIFFICULTY AND GOOD BLOOD RETURN. BOTH PORT WITH GOOD BLOOD RETURN AND FLUSHED PER [facility] PROTOCOL WITH SALINE AND HEP FRANCK. PATIENT HAS HAD RESTLESS NIGHT OVERALL-UP AND DOWN FROM BED O RECLINER TO SITTING ON THE SIDE OF THE BED. O2/C-PAP ON AND OFF ALL NIGHT. CALL LIGHT IN REACH, WILL CONT TO MONITOR.
[2018-07-11 05:40] LABS: HEMOGLOBIN 9.6 g/dl (14.0-18.0); IMMATURE GRANULOCYTES 1.8 % (0.0-5.0); MEAN CELL VOLUME 90.1 fL CALC (80.0-100.0); NEUT# 3.55 thou/uL (1.82-7.42); RED BLOOD COUNT 3.55 mill/uL (4.70-6.10); RED CELL DISTRI WIDTH 17.4 % (11.5-15.5)
[2018-07-11 05:52] LABS: ALBUMIN 3.2 g/dL (3.2-5.0); BILIRUBIN, TOTAL 0.2 mg/dL (0.0-1.4); CREATININE 3.4 mg/dL (0.7-1.3); POTASSIUM 5.1 mmol/l (3.5-5.1); TOTAL PROTEIN 6.8 g/dL (6.3-8.2)
--- NOTE | 2018-07-11 06:07 | NUR ---
RECIEVED CALLED FROM [facility] IN THE LAB WITH CRITICAL RESULTS REGUARDING KIDNEY FUNC-BUN-99, CREAT-3.4 AND GFR-20, DR. RODRIGUEZ CALLED WITH THESE RESULTS. Andrei/Bettina NERI AND STATES THAT HE WILL SPEAK WITH NEPHROLOGY THIS MORNING. WILL CONT TO MONITOR.
--- NOTE | 2018-07-11 06:45 | NUR ---
RECIEVED REPORT FROM GAUDENCIO DE LEON. ASSUMED PT CARE.
[2018-07-11 07:15] VITALS: BP 123/63
--- NOTE | 2018-07-11 07:15 | NUR ---
PT SITTING IN RECLINER WITH EYES CLOSED, AROUSAL WITH VERBAL STIMULI. PT A&OX3, ABLE TO MAKE NEEDS KNOWN. SR ON TELEMETRY, PT DENIES CHEST PAIN OR DISTRESS AT THIS TIME. RESPIRATION EVEN/UNLABORED, LS CLEAR/DIMINISHED THROUGHOUT. PT CONTINUES WITH DRY COUGH, INTERMITTANTLY, NON-PRODUCTIVE. ABDOMEN GROSSLY DISTENDED, BSX4 PT REPORTS BM 11-11-18. PT CONTINUES WITH +4 GENERALIZED PITTING EDEMA. PT CONTINUES WITH DL/PICC/SL. CALL LIGHT IN REACH, WILL MONITOR.
--- NOTE | 2018-07-11 07:30 | NUR ---
DIETARY ON UNIT, BREAKFAST TRAY SET UP
[2018-07-11 08:00] VITALS: BP 159/94
--- NOTE | 2018-07-11 08:20 | NUR ---
DR. RODRIGUEZ AT BEDSIDE FOR ASSESSMENT AND TO DISCUSS PLAN OF CARE. NEW ORDERS RECIEVED.
--- NOTE | 2018-07-11 09:00 | NUR ---
MARLENA WINTER, RN FROM [facility] AT BEDSIDE. UPDATE GIVEN.
--- NOTE | 2018-07-11 09:53 | NUR ---
PT FAMILY AT BEDSIDE.
[2018-07-11 10:00] VITALS: BP 161/98
--- NOTE | 2018-07-11 10:15 | NUR ---
Discharge instructions given. Patient verbalizes understanding of same. Discharged in stable condition via Wheelchair to Home with family. All belongings sent with pt.
--- NOTE | 2018-07-11 10:29 | NUR ---
Discharge instructions given. Patient verbalizes understanding of same. Discharged in stable condition via Wheelchair to Home with family. All belongings sent with pt.
== END 2018-07-11 10:15 | DRG 292 ==
LOC: ED 12:03 → ED-I 13:05 → ED 13:21 → ICU 13:22
PROVIDERS: Emergency Medicine; ADMIT Internal Medicine Geriatric Medicine; ATTEND Internal Medicine Geriatric Medicine
PROC: 5A09357 Assistance with Respiratory Ventilation, Less than 24 Consecutive Hours, Continuous Positive Airway Pressure (ICD-10-PCS; principal; 2018-07-08)
DX: I13.0 Hypertensive heart and chronic kidney disease with heart failure and stage 1 through stage 4 chronic kidney disease, or unspecified chronic kidney disease (principal); Z68.44 Body mass index [BMI] 60.0-69.9, adult; N18.4 Chronic kidney disease, stage 4 (severe); I50.1 Left ventricular failure, unspecified; E10.65 Type 1 diabetes mellitus with hyperglycemia; E66.01 Morbid (severe) obesity due to excess calories; G47.30 Sleep apnea, unspecified; I25.10 Atherosclerotic heart disease of native coronary artery without angina pectoris; K21.9 Gastro-esophageal reflux disease without esophagitis; E03.9 Hypothyroidism, unspecified; G25.81 Restless legs syndrome; D50.9 Iron deficiency anemia, unspecified; E10.22 Type 1 diabetes mellitus with diabetic chronic kidney disease; L98.9 Disorder of the skin and subcutaneous tissue, unspecified; Z79.4 Long term (current) use of insulin

== ENCOUNTER 2018-11-07 12:36 | Emergency (ER) | payer MEDICAID ==
[~2018-11-07] VITALS: Ht 185.4 cm; Wt 214.5 kg
[~2018-11-07 12:36] MED LIST changes: +HEPARIN SODIUM IV; -HUMALOG100 UNIT/M; +HUMALOG100 UNIT/M SC; -MUPIROCIN21; +MUPIROCIN21 TOP; +PROCRIT 1010000 U/ML IJ; +SANTYL250 UNIT/G TOP
[2018-11-07] MEDS ORDERED: VOLTAREN1%GEL TOP (13:08)
[2018-11-07] MEDS ORDERED: AMOX/K CLAV875 M1 PO (13:41)
[2018-11-07] MEDS ORDERED: GLIPIZIDE5 M2 PO (13:43)
[2018-11-07] MEDS ORDERED: ROPINIROLE HCL4 MG PO (13:44)
[2018-11-07] MEDS ORDERED: LYRICA300 MG PO (13:44)
[2018-11-07] MEDS ORDERED: CARVEDILOL12.5 MG PO (13:45)
[2018-11-07] MEDS ORDERED: ZOLPIDEM ER12.5 MG PO (13:45)
[2018-11-07] MEDS ORDERED: COLCHICINE0.6 M2 PO (14:27)
[2018-11-07] MEDS ORDERED: TRAMADOL HYDROC50 MG PO (14:29)
[2018-11-07 14:44] VITALS: BP 131/76
== END 2018-11-07 14:44 | disposition home or self-care (01) ==
LOC: ED 12:36
DX: S46.811A Strain of other muscles, fascia and tendons at shoulder and upper arm level, right arm, initial encounter (principal); M10.9 Gout, unspecified; M25.521 Pain in right elbow

== ENCOUNTER 2019-01-10 11:32 | Emergency (ER) | payer MEDICAID ==
[~2019-01-10] VITALS: Ht 185.4 cm; Wt 192.0 kg
[~2019-01-10 11:32] MED LIST changes: +AMOX/K CLAV875 M1 PO; +CARVEDILOL12.5 MG PO; +COLCHICINE0.6 M2 PO; +GLIPIZIDE5 M2 PO; +LYRICA300 MG PO; +ROPINIROLE HCL4 MG PO; +TRAMADOL HYDROC50 MG PO; +VOLTAREN1%GEL TOP; +ZOLPIDEM ER12.5 MG PO
[2019-01-10] MEDS ORDERED: ISOSORB DIN10 MG PO (12:19)
[2019-01-10] MEDS ORDERED: HYDRALAZINE25 MG PO (12:20)
[2019-01-10] MEDS ORDERED: CLONIDINE0.1 MG PO (12:20)
[2019-01-10] MEDS ORDERED: TRICOR145 MG PO (12:21)
[2019-01-10] MEDS ORDERED: FERR SULFATE325 MG PO (12:22)
[2019-01-10 12:32] LABS: HEMOGLOBIN 11.3 g/dl (14.0-18.0); IMMATURE GRANULOCYTES 0.7 % (0.0-5.0); MEAN CELL VOLUME 78.8 fL CALC (80.0-100.0); MEAN CORPUSCULAR HGB 25.5 pG CALC (26.0-32.0); MEAN CORPUSCULAR HGB CONC 32.3 g/L CALC (32.0-36.0); NEUT# 12.1 thou/uL (1.82-7.42); RED BLOOD COUNT 4.44 mill/uL (4.70-6.10); RED CELL DISTRI WIDTH 17.2 % (11.5-15.5)
[2019-01-10 14:02] LABS: ALBUMIN 4.3 g/dL (3.2-5.0); TOTAL PROTEIN 8.4 g/dL (6.3-8.2)
[2019-01-10 14:26] LABS: BILIRUBIN, TOTAL 1.1 mg/dL (0.0-1.4); CREATININE 4.4 mg/dL (0.7-1.3)
[2019-01-10 15:57] VITALS: BP 140/65
== END 2019-01-10 15:57 | disposition short-term general hospital (02) ==
LOC: ED 11:32 → ED-I 14:30 → ED 15:57
PROVIDERS: Emergency Medicine
DX: R55 Syncope and collapse (principal); I95.9 Hypotension, unspecified; L03.116 Cellulitis of left lower limb; E11.65 Type 2 diabetes mellitus with hyperglycemia; I13.2 Hypertensive heart and chronic kidney disease with heart failure and with stage 5 chronic kidney disease, or end stage renal disease; E11.22 Type 2 diabetes mellitus with diabetic chronic kidney disease; N18.6 End stage renal disease; I50.9 Heart failure, unspecified; E11.621 Type 2 diabetes mellitus with foot ulcer; L97.529 Non-pressure chronic ulcer of other part of left foot with unspecified severity; L97.519 Non-pressure chronic ulcer of other part of right foot with unspecified severity; J44.9 Chronic obstructive pulmonary disease, unspecified; E11.610 Type 2 diabetes mellitus with diabetic neuropathic arthropathy; Z91.81 History of falling

== ENCOUNTER 2019-05-09 10:57 | Emergency (ER) | payer OTHER ==
[~2019-05-09] VITALS: Ht 185.4 cm; Wt 200.0 kg
[~2019-05-09 10:57] MED LIST changes: +ADULT ASPIRIN R81 MG PO; +B-121000 MC4 PO; +BACTRIM DS1 TAB PO; +CYMBALTA30 MG PO; +D-10001000 UNIT PO; +DULOXETINE HYDR60 MG PO; +EMBEDA PO; +HYDRALAZINE25 MG PO; +ISOSORB DIN10 MG PO; +LEVEMIR FL100 UNIT/M SC; +OXYCODONE5 M1 PO
[2019-05-09 12:46] LABS: URINE BILIRUBIN - DIPSTICK NEGATIVE (NEGATIVE); URINE BLOOD DIPSTICK TRACE-INTACT (NEGATIVE); URINE COLOR YELLOW; URINE GLUCOSE - DIPSTICK NEGATIVE (NEGATIVE); URINE KETONE NEGATIVE (NEGATIVE); URINE LEUK ESTERASE NEGATIVE (NEGATIVE); URINE NITRITE - DIPSTICK NEGATIVE (Negative); URINE PROTEIN - DIPSTICK 100 mg/dL (NEG-TRACE); URINE SPECIFIC GRAVITY 1.025; URINE UROBILINOGEN - DIPSTICK 0.2 E.U./dL (0.2)
[2019-05-09 12:49] LABS: URINE AMORPH SEDIMENT MANY hpf (NONE-FER); URINE MUCUS MANY hpf (NONE-FEW); URINE RBC 0-2 RBC/hpf (0-5)
[2019-05-09 15:15] VITALS: BP 1456/66
== END 2019-05-09 15:15 | disposition short-term general hospital (02) ==
LOC: ED 10:57
PROVIDERS: Family Medicine
DX: I13.0 Hypertensive heart and chronic kidney disease with heart failure and stage 1 through stage 4 chronic kidney disease, or unspecified chronic kidney disease (principal); I50.9 Heart failure, unspecified; J96.00 Acute respiratory failure, unspecified whether with hypoxia or hypercapnia; L03.116 Cellulitis of left lower limb; E11.22 Type 2 diabetes mellitus with diabetic chronic kidney disease; N18.9 Chronic kidney disease, unspecified; J44.9 Chronic obstructive pulmonary disease, unspecified; Z79.4 Long term (current) use of insulin

== ENCOUNTER 2019-09-19 10:16 | Inpatient (IN) | payer MEDICAID ==
[~2019-09-19] VITALS: Ht 185.4 cm; Wt 221.5 kg
[2019-09-19] VITALS (18 sets, daily range): BP systolic 121–156; BP diastolic 64–93
[2019-09-19 11:19] LABS: HEMATOCRIT 31.2 % (39.0-50.0); IMMATURE GRANULOCYTES 0.2 % (0.0-5.0); MEAN CORPUSCULAR HGB 24.5 pG CALC (26.0-32.0); MEAN CORPUSCULAR HGB CONC 28.8 g/L CALC (32.0-36.0); NEUT# 4.14 thou/uL (1.82-7.42); RED BLOOD COUNT 3.67 mill/uL (4.70-6.10); RED CELL DISTRI WIDTH 18.6 % (11.5-15.5)
[2019-09-19 11:31] LABS: ALBUMIN 4.1 g/dL (3.2-5.0); BILIRUBIN, TOTAL 0.5 mg/dL (0.0-1.4); CREATININE 4.2 mg/dL (0.7-1.3); POTASSIUM 4.6 mmol/l (3.5-5.1); TOTAL PROTEIN 8.2 g/dL (6.3-8.2)
[2019-09-19 12:02] LABS: TSH, 3RD GENERATION 5.56 uIU/mL (0.47 - 4.68)
[2019-09-19] MEDS ORDERED: ASPIRIN 8181 MG PO (14:02)
[2019-09-19] MEDS ORDERED: BUMETANIDE2 MG PO (14:03)
[2019-09-19] MEDS ORDERED: COREG12.5 MG PO (14:04)
[2019-09-19] MEDS ORDERED: CLONIDINE0.2 MG PO (14:04)
[2019-09-19] MEDS ORDERED: CYMBALTA60 MG PO (14:05)
[2019-09-19] MEDS ORDERED: FENOFIBRATE145 MG PO (14:06)
[2019-09-19] MEDS ORDERED: APRESOLINE25 MG/TAB PO (14:09)
[2019-09-19 14:10] LABS: URINE BILIRUBIN - DIPSTICK NEGATIVE (NEGATIVE); URINE BLOOD DIPSTICK NEGATIVE (NEGATIVE); URINE COLOR YELLOW; URINE GLUCOSE - DIPSTICK NEGATIVE (NEGATIVE); URINE KETONE NEGATIVE (NEGATIVE); URINE LEUK ESTERASE NEGATIVE (Negative); URINE NITRITE - DIPSTICK NEGATIVE (Negative); URINE PH 5.5 (4.5-8.0); URINE PROTEIN - DIPSTICK 100 mg/dL (NEG-TRACE); URINE UROBILINOGEN - DIPSTICK 0.2 E.U./dL (0.2)
[2019-09-19] MEDS ORDERED: FERRETTS325 MG PO (14:10)
[2019-09-19] MEDS ORDERED: METOLAZONE5 MG PO (14:11)
[2019-09-19] MEDS ORDERED: GLIPIZIDE5 M2 PO (14:12)
[2019-09-19] MEDS ORDERED: LYRICA300 MG PO (14:13)
[2019-09-19] MEDS ORDERED: ISOSORB DIN10 MG PO (14:14)
[2019-09-19] MEDS ORDERED: ROPINIROLE4 MG PO ×2 (14:15→14:44)
[2019-09-19] MEDS ORDERED: TAMSULOSIN0.4 MG PO (14:17)
[2019-09-19 14:19] LABS: URINE CLARITY SL CLOUDY; URINE EPITHELIAL CELLS FEW EPI/hpf (0-FEW); URINE MUCUS MODERATE hpf (NONE-FEW)
[2019-09-19] MEDS ORDERED: LEVEMIR FL100 UNIT/M SC (14:30)
[2019-09-19] MEDS ORDERED: NOVOLOG100 UNIT/M SC (14:43)
[2019-09-19] MEDS ORDERED: OXYCODONE10 M1 PO (14:44)
[2019-09-19] MEDS ORDERED: MULTIVITAMI9 PO (14:49)
[2019-09-19] MEDS ORDERED: PROBIOTI2 PO (14:49)
[2019-09-20] VITALS (22 sets, daily range): BP systolic 115–174; BP diastolic 61–99
[2019-09-20 05:24] LABS: HEMATOCRIT 32.9 % (39.0-50.0); HEMOGLOBIN 9.6 g/dl (14.0-18.0); MEAN CELL VOLUME 84.8 fL CALC (80.0-100.0); MEAN CORPUSCULAR HGB 24.7 pG CALC (26.0-32.0); MEAN CORPUSCULAR HGB CONC 29.2 g/L CALC (32.0-36.0); RED BLOOD COUNT 3.88 mill/uL (4.70-6.10); RED CELL DISTRI WIDTH 18.5 % (11.5-15.5)
[2019-09-20 05:55] LABS: ALBUMIN 4.3 g/dL (3.2-5.0); CREATININE 4.1 mg/dL (0.7-1.3); MAGNESIUM 2.2 mg/dL (1.6-2.3); POTASSIUM 4.8 mmol/l (3.5-5.1)
[2019-09-21] VITALS (24 sets, daily range): BP systolic 120–160; BP diastolic 60–83
[2019-09-21 05:40] LABS: ALBUMIN 3.8 g/dL (3.2-5.0); MAGNESIUM 2.2 mg/dL (1.6-2.3); POTASSIUM 4.2 mmol/l (3.5-5.1)
[2019-09-22] VITALS (16 sets, daily range): BP systolic 101–152; BP diastolic 58–94
[2019-09-22 04:57] LABS: HEMATOCRIT 30.1 % (39.0-50.0); HEMOGLOBIN 8.9 g/dl (14.0-18.0); MEAN CELL VOLUME 84.1 fL CALC (80.0-100.0); MEAN CORPUSCULAR HGB 24.9 pG CALC (26.0-32.0); MEAN CORPUSCULAR HGB CONC 29.6 g/L CALC (32.0-36.0); RED BLOOD COUNT 3.58 mill/uL (4.70-6.10); RED CELL DISTRI WIDTH 18.7 % (11.5-15.5)
[2019-09-22 05:15] LABS: CREATININE 3.7 mg/dL (0.7-1.3); POTASSIUM 4.6 mmol/l (3.5-5.1)
[2019-09-22] MEDS ORDERED: METOLAZONE5 MG PO (15:48)
== END 2019-09-22 21:15 | disposition home or self-care (01) | DRG 291 ==
LOC: MS2 10:16 → ICU 10:17
PROVIDERS: ADMIT Internal Medicine; ATTEND Internal Medicine
DX: I13.0 Hypertensive heart and chronic kidney disease with heart failure and stage 1 through stage 4 chronic kidney disease, or unspecified chronic kidney disease (principal); I50.33 Acute on chronic diastolic (congestive) heart failure; N18.4 Chronic kidney disease, stage 4 (severe); N17.9 Acute kidney failure, unspecified; Z68.43 Body mass index [BMI] 50.0-59.9, adult; E11.22 Type 2 diabetes mellitus with diabetic chronic kidney disease; J44.9 Chronic obstructive pulmonary disease, unspecified; D63.1 Anemia in chronic kidney disease; E11.40 Type 2 diabetes mellitus with diabetic neuropathy, unspecified; G47.33 Obstructive sleep apnea (adult) (pediatric); E11.65 Type 2 diabetes mellitus with hyperglycemia; E66.01 Morbid (severe) obesity due to excess calories; Z79.4 Long term (current) use of insulin

== ENCOUNTER 2019-10-13 | Observation (INO) | payer MEDICAID ==
[~2019-10-13] MED LIST changes: +APRESOLINE25 MG/TAB PO; +ASPIRIN 8181 MG PO; +BUMETANIDE2 MG PO; +CLONIDINE0.2 MG PO; +COREG12.5 MG PO; +FENOFIBRATE145 MG PO; +FERRETTS325 MG PO; +MULTIVITAMI9 PO; +NOVOLOG100 UNIT/M SC; +OXYCODONE10 M1 PO; +PROBIOTI2 PO; +ROPINIROLE4 MG PO; +TAMSULOSIN0.4 MG PO
[2019-10-13 16:05] LABS: HEMATOCRIT 30.1 % (39.0-50.0); HEMOGLOBIN 8.9 g/dl (14.0-18.0); IMMATURE GRANULOCYTES 0.4 % (0.0-5.0); MEAN CELL VOLUME 82.7 fL CALC (80.0-100.0); MEAN CORPUSCULAR HGB 24.5 pG CALC (26.0-32.0); MEAN CORPUSCULAR HGB CONC 29.6 g/L CALC (32.0-36.0); NEUT# 4.26 thou/uL (1.82-7.42); RED BLOOD COUNT 3.64 mill/uL (4.70-6.10); RED CELL DISTRI WIDTH 17.7 % (11.5-15.5)
[2019-10-13 16:29] LABS: INTERNATIONAL NORMALIZED RATIO 1.2 RATIO (0.7-1.3); PROTHROMBIN TIME 12.4 SECONDS (9.0-12.5)
[2019-10-13 16:36] LABS: ALBUMIN 4.5 g/dL (3.2-5.0); ALKALINE PHOSPHATASE 53 u/l (38-126); ANION GAP 21 (6-22 (CALC)); BILIRUBIN, TOTAL 0.7 mg/dL (0.0-1.4); CHLORIDE 104 mmol/l (95-108); CREATININE 4.5 mg/dL (0.7-1.3); GFR 15 ML/MIN (>=60 (CALC)); GFR FOR AFR.AMER. 18 ML/MIN (>=60 (CALC)); POTASSIUM 4.2 mmol/l (3.5-5.1); SGOT/AST 35 u/l (17-59); SODIUM 143 mmol/l (137-146); TOTAL PROTEIN 8.6 g/dL (6.3-8.2)
[2019-10-13 16:58] LABS: BUN 155 mg/dL (9-20); BUN/CREATININE RATIO 34 (12-20 (CALC)); CARBON DIOXIDE 22 mmol/l (22-30)
[2019-10-13 19:18] VITALS: BP 145/91
[2019-10-14 00:14] VITALS: BP 139/80
[2019-10-14 04:35] VITALS: BP 138/86
[2019-10-14 04:58] LABS: HEMATOCRIT 30.6 % (39.0-50.0); HEMOGLOBIN 9.1 g/dl (14.0-18.0); IMMATURE GRANULOCYTES 0.4 % (0.0-5.0); MEAN CELL VOLUME 82.7 fL CALC (80.0-100.0); MEAN CORPUSCULAR HGB 24.6 pG CALC (26.0-32.0); MEAN CORPUSCULAR HGB CONC 29.7 g/L CALC (32.0-36.0); NEUT# 3.54 thou/uL (1.82-7.42); RED BLOOD COUNT 3.7 mill/uL (4.70-6.10); RED CELL DISTRI WIDTH 17.7 % (11.5-15.5)
[2019-10-14 05:16] LABS: CREATININE 4.4 mg/dL (0.7-1.3); POTASSIUM 3.9 mmol/l (3.5-5.1)
[2019-10-14 08:00] VITALS: BP 125/91
[2019-10-14 10:35] VITALS: BP 114/69
== END 2019-10-14 14:03 | disposition home or self-care (01) ==
PROVIDERS: Emergency Medicine; ADMIT Internal Medicine
DX: I13.0 Hypertensive heart and chronic kidney disease with heart failure and stage 1 through stage 4 chronic kidney disease, or unspecified chronic kidney disease (principal); I50.33 Acute on chronic diastolic (congestive) heart failure; E11.22 Type 2 diabetes mellitus with diabetic chronic kidney disease; N18.4 Chronic kidney disease, stage 4 (severe); J44.9 Chronic obstructive pulmonary disease, unspecified; M25.561 Pain in right knee; G25.81 Restless legs syndrome; D63.1 Anemia in chronic kidney disease; G47.33 Obstructive sleep apnea (adult) (pediatric); E66.01 Morbid (severe) obesity due to excess calories; Z79.4 Long term (current) use of insulin; R06.02 Shortness of breath
CPT/HCPCS: G0378

== ENCOUNTER 2019-11-04 | Emergency (ER) | payer MEDICAID ==
[2019-11-04 10:34] LABS: HEMATOCRIT 34.9 % (39.0-50.0); HEMOGLOBIN 10.4 g/dl (14.0-18.0); IMMATURE GRANULOCYTES 0.3 % (0.0-5.0); MEAN CELL VOLUME 82.7 fL CALC (80.0-100.0); MEAN CORPUSCULAR HGB 24.6 pG CALC (26.0-32.0); MEAN CORPUSCULAR HGB CONC 29.8 g/L CALC (32.0-36.0); NEUT# 5.6 thou/uL (1.82-7.42); RED BLOOD COUNT 4.22 mill/uL (4.70-6.10); RED CELL DISTRI WIDTH 17.9 % (11.5-15.5)
[2019-11-04 10:53] LABS: ALBUMIN 4.7 g/dL (3.2-5.0); CREATININE 3.9 mg/dL (0.7-1.3); POTASSIUM 3.7 mmol/l (3.5-5.1); TOTAL PROTEIN 9.2 g/dL (6.3-8.2)
[2019-11-04 11:01] LABS: BILIRUBIN, TOTAL 1.3 mg/dL (0.0-1.4)
[2019-11-04] MEDS ORDERED: PREDNISONE50 MG PO (11:17)
[2019-11-04] MEDS ORDERED: CYCLOBENZAPR5 MG PO (11:17)
== END 2019-11-04 11:35 | disposition home or self-care (01) ==
PROVIDERS: Family Medicine
DX: M54.5 Low back pain (principal); M54.6 Pain in thoracic spine; I12.9 Hypertensive chronic kidney disease with stage 1 through stage 4 chronic kidney disease, or unspecified chronic kidney disease; E11.22 Type 2 diabetes mellitus with diabetic chronic kidney disease; N18.9 Chronic kidney disease, unspecified; J44.9 Chronic obstructive pulmonary disease, unspecified; Z79.4 Long term (current) use of insulin

== ENCOUNTER 2020-02-08 09:22 | Emergency (ER) | payer MEDICAID ==
[~2020-02-08 09:22] MED LIST changes: +CYCLOBENZAPR5 MG PO; +PREDNISONE50 MG PO
[2020-02-08 10:39] LABS: HEMATOCRIT 37.1 % (39.0-50.0); IMMATURE GRANULOCYTES 0.2 % (0.0-5.0); MEAN CORPUSCULAR HGB 25.9 pG CALC (26.0-32.0); MEAN CORPUSCULAR HGB CONC 34.2 g/dL CAL (32.0-36.0); NEUT# 6.55 thou/uL (1.82-7.42); RED BLOOD COUNT 4.9 mill/uL (4.70-6.10); RED CELL DISTRI WIDTH 15.7 % (11.5-15.5)
[2020-02-08 10:55] LABS: ALBUMIN 4.8 g/dL (3.2-5.0); BILIRUBIN, TOTAL 1.4 mg/dL (0.0-1.4); CREATININE 3.8 mg/dL (0.7-1.3); TOTAL PROTEIN 9.1 g/dL (6.3-8.2)
[2020-02-08 11:00] VITALS: BP 165/101
[2020-02-08 11:01] LABS: HEMOGLOBIN 12.7 g/dl (14.0-18.0); MEAN CELL VOLUME 75.7 fL CALC (80.0-100.0)
[2020-02-08 11:10] LABS: POTASSIUM 4.6 mmol/l (3.5-5.1)
== END 2020-02-08 11:18 | disposition short-term general hospital (02) ==
LOC: ED 09:22
PROVIDERS: Family Medicine
DX: I21.3 ST elevation (STEMI) myocardial infarction of unspecified site (principal); E11.9 Type 2 diabetes mellitus without complications; I10 Essential (primary) hypertension; J44.9 Chronic obstructive pulmonary disease, unspecified; Z11.59 Encounter for screening for other viral diseases
CPT/HCPCS: Q9967

== ENCOUNTER 2020-08-06 10:12 | Emergency (ER) | payer MEDICARE, MEDICAID ==
[~2020-08-06] VITALS: Ht 185.4 cm; Wt 200.0 kg
[2020-08-06 11:08] LABS: HEMATOCRIT 31.3 % (39.0-50.0); HEMOGLOBIN 9.2 g/dl (14.0-18.0); IMMATURE GRANULOCYTES 0.3 % (0.0-5.0); MEAN CELL VOLUME 85.5 fL CALC (80.0-100.0); MEAN CORPUSCULAR HGB 25.1 pG CALC (26.0-32.0); MEAN CORPUSCULAR HGB CONC 29.4 g/dL CAL (32.0-36.0); NEUT# 8.09 thou/uL (1.82-7.42); RED BLOOD COUNT 3.66 mill/uL (4.70-6.10); RED CELL DISTRI WIDTH 18.4 % (11.5-15.5)
--- NOTE | 2020-08-06 11:19 | NUR ---
PT PLACED ON BIPAP ORDERED SETTINGS 20/6/50% PRE DR. JO. RR22 SPO2 (7% RN AT BEDSIDE. ABG RESULTS RECORDED
[2020-08-06 11:25] LABS: D-DIMER 0.53 mg/L (0.19-0.60)
[2020-08-06 11:29] LABS: ACT PARTIAL THROMBO TIME 29.8 SECONDS (20.0-32.5); INTERNATIONAL NORMALIZED RATIO 1.4 RATIO (0.7-1.3); PROTHROMBIN TIME 14.1 SECONDS (9.0-12.5)
[2020-08-06 11:48] LABS: ALBUMIN 3.8 g/dL (3.2-5.0); CARBON DIOXIDE 19 mmol/l (22-30); CHLORIDE 101 mmol/l (95-108); SODIUM 137 mmol/l (137-146); TOTAL PROTEIN 8.3 g/dL (6.3-8.2)
[2020-08-06 11:49] LABS: BUN 72 mg/dL (9-20)
[2020-08-06 11:51] LABS: ANION GAP 23 (6-22 (CALC)); BILIRUBIN, TOTAL 1.5 mg/dL (0.0-1.4); BUN/CREATININE RATIO 9 (12-20 (CALC)); CREATININE 7.8 mg/dL (0.7-1.3); GFR 8 ML/MIN (>=60 (CALC)); GFR FOR AFR.AMER. 9 ML/MIN (>=60 (CALC)); POTASSIUM 5.9 mmol/l (3.5-5.1)
[2020-08-06 12:32] LABS: ALKALINE PHOSPHATASE 45 u/l (38-126); SGOT/AST 53 u/l (17-59)
[2020-08-06 14:17] VITALS: BP 85/60
== END 2020-08-06 14:28 | disposition short-term general hospital (02) ==
LOC: ED 10:12
PROVIDERS: Student in an Organized Health Care Education/Training Program
PROC: 5A09357 Assistance with Respiratory Ventilation, Less than 24 Consecutive Hours, Continuous Positive Airway Pressure (ICD-10-PCS; principal; 2020-08-06)
DX: I13.2 Hypertensive heart and chronic kidney disease with heart failure and with stage 5 chronic kidney disease, or end stage renal disease (principal); E11.22 Type 2 diabetes mellitus with diabetic chronic kidney disease; N18.6 End stage renal disease; I50.9 Heart failure, unspecified; J44.1 Chronic obstructive pulmonary disease with (acute) exacerbation; J96.01 Acute respiratory failure with hypoxia; E87.5 Hyperkalemia; F17.200 Nicotine dependence, unspecified, uncomplicated; G47.30 Sleep apnea, unspecified; E66.01 Morbid (severe) obesity due to excess calories; D63.1 Anemia in chronic kidney disease; Z99.2 Dependence on renal dialysis; Z79.4 Long term (current) use of insulin; Z20.828 Contact with and (suspected) exposure to other viral communicable diseases

== ENCOUNTER 2020-11-23 16:04 | Emergency (ER) | payer MEDICARE, MEDICAID ==
[~2020-11-23] VITALS: Ht 185.4 cm; Wt 181.8 kg
[~2020-11-23 16:04] MED LIST changes: +GABAPENTIN100 MG PO; +OMNI-PAC300 MG PO
[2020-11-23 16:35] LABS: HEMATOCRIT 34.1 % (39.0-50.0); HEMOGLOBIN 10.1 g/dl (14.0-18.0); IMMATURE GRANULOCYTES 0.7 % (0.0-5.0); MEAN CORPUSCULAR HGB 28.9 pG CALC (26.0-32.0); MEAN CORPUSCULAR HGB CONC 29.6 g/dL CAL (32.0-36.0); NEUT# 5.8 thou/uL (1.82-7.42); RED BLOOD COUNT 3.5 mill/uL (4.70-6.10); RED CELL DISTRI WIDTH 19.9 % (11.5-15.5)
[2020-11-23 16:39] LABS: MEAN CELL VOLUME 97.4 fL CALC (80.0-100.0)
--- NOTE | 2020-11-23 16:39 | NUR ---
PT PRESENTS IN ER VIA EMS. PT LETHARGIC, OBTUNDED. NARCAN ADMINISTERED C BIPAP INITIATION. ABG OBTAINED. PT A/O NOW, RESPONDING APPROPRIATELY. NAD. VSS. AYLA NIV WELL. FLOOR COVERING INSTALLER TO MONITOR.
[2020-11-23 16:59] LABS: INTERNATIONAL NORMALIZED RATIO 1.1 RATIO (0.7-1.3); PROTHROMBIN TIME 11.6 SECONDS (9.0-12.5)
[2020-11-23 17:01] LABS: BILIRUBIN, TOTAL 1.2 mg/dL (0.0-1.4)
[2020-11-23 17:14] LABS: CREATININE 6.2 mg/dL (0.7-1.3); POTASSIUM 5.5 mmol/l (3.5-5.1); TOTAL PROTEIN 10.7 g/dL (6.3-8.2)
[2020-11-23] MEDS ORDERED: MIRTAZAPINE30 M2 PO (17:33)
[2020-11-23] MEDS ORDERED: BUMETANIDE1 MG PO (17:34)
[2020-11-23] MEDS ORDERED: CYMBALTA60 MG PO (17:34)
[2020-11-23] MEDS ORDERED: CARVEDILOL12.5 MG PO (17:35)
[2020-11-23] MEDS ORDERED: METOLAZONE5 MG PO (17:35)
[2020-11-23] MEDS ORDERED: HYDROCODONE/ACE1 T12 PO (17:39)
[2020-11-23] MEDS ORDERED: LANTUS SOL100 UNIT/M IJ (17:40)
[2020-11-23] MEDS ORDERED: HUMALOG100 UNIT/M SC (17:41)
[2020-11-23 18:25] VITALS: BP 125/75
--- NOTE | 2020-11-25 07:51 | NUR ---
PRELIM BLOOD CX SHOWS GRAM POSITIVE COCCI IN 4 OF 4 BOTTLES. PT WAS TRANSFERRED TO [facility]. RESULTS CALLED TO NURSE NOR[place]OD AND FAXED TO [phone]
--- NOTE | 2020-11-26 12:33 | NUR ---
FINAL BLOOD CX RESULTS SHOW STAPH LENTUS IN 2 OF 4 BOTTLES. PT WAS TRANSFERRED TO [facility], SINCE BEEN DISCHARGED. I SPOKE WITH PT, REPORTS RECEIVING ABX AT [facility] BUT DOESNT RECALL NAME, WAS NOT DISCHARGED ON ABX. PT REPORTS FEELING BETTER AND HAS APPT WITH DR SELF TO F/U. RESULTS FAXED TO DR SELF OFFICE
== END 2020-11-23 18:25 | disposition short-term general hospital (02) ==
LOC: ED 16:04
PROVIDERS: Family Medicine
PROC: 5A09357 Assistance with Respiratory Ventilation, Less than 24 Consecutive Hours, Continuous Positive Airway Pressure (ICD-10-PCS; principal; 2020-11-23)
DX: J96.02 Acute respiratory failure with hypercapnia (principal); J44.1 Chronic obstructive pulmonary disease with (acute) exacerbation; E11.22 Type 2 diabetes mellitus with diabetic chronic kidney disease; I13.2 Hypertensive heart and chronic kidney disease with heart failure and with stage 5 chronic kidney disease, or end stage renal disease; I50.9 Heart failure, unspecified; N18.6 End stage renal disease; F17.200 Nicotine dependence, unspecified, uncomplicated; Z99.2 Dependence on renal dialysis; Z79.4 Long term (current) use of insulin; Z20.822 Contact with and (suspected) exposure to COVID-19

== ENCOUNTER 2021-05-18 09:41 | Emergency (ER) | payer MEDICARE, MEDICAID ==
[~2021-05-18] VITALS: Ht 185.4 cm; Wt 159.0 kg
[~2021-05-18 09:41] MED LIST changes: +HYDROCODONE/ACE1 T12 PO; +LANTUS SOL100 UNIT/M IJ; +MIRTAZAPINE30 M2 PO
[2021-05-18] MEDS ORDERED: KEFLEX500 MG PO (10:58)
[2021-05-18 11:15] VITALS: BP 120/70
== END 2021-05-18 11:15 | disposition home or self-care (01) ==
LOC: ED 09:41
PROC: 0HQKXZZ Repair Right Lower Leg Skin, External Approach (ICD-10-PCS; principal; 2021-05-18)
DX: S81.811A Laceration without foreign body, right lower leg, initial encounter (principal); E11.22 Type 2 diabetes mellitus with diabetic chronic kidney disease; I13.2 Hypertensive heart and chronic kidney disease with heart failure and with stage 5 chronic kidney disease, or end stage renal disease; I50.9 Heart failure, unspecified; N18.6 End stage renal disease; J44.9 Chronic obstructive pulmonary disease, unspecified; F17.200 Nicotine dependence, unspecified, uncomplicated; W22.09XA Striking against other stationary object, initial encounter; Y92.008 Other place in unspecified non-institutional (private) residence as the place of occurrence of the external cause; Z79.4 Long term (current) use of insulin; Z99.2 Dependence on renal dialysis

== ENCOUNTER 2021-08-17 12:03 | Emergency (ER) | payer MEDICARE, MEDICAID ==
[~2021-08-17] VITALS: Ht 185.4 cm; Wt 154.0 kg
[~2021-08-17 12:03] MED LIST changes: +KEFLEX500 MG PO
[2021-08-17 13:26] LABS: HEMATOCRIT 34.8 % (39.0-50.0); HEMOGLOBIN 11.5 g/dl (14.0-18.0); IMMATURE GRANULOCYTES 0.3 % (0.0-5.0); MEAN CELL VOLUME 93.5 fL CALC (80.0-100.0); MEAN CORPUSCULAR HGB 30.9 pG CALC (26.0-32.0); NEUT# 5.73 thou/uL (1.82-7.42); RED BLOOD COUNT 3.72 mill/uL (4.70-6.10)
[2021-08-17 13:37] LABS: ALBUMIN 4.1 g/dL (3.2-5.0)
[2021-08-17 13:39] LABS: BILIRUBIN, TOTAL 3.2 mg/dL (0.0-1.4); POTASSIUM 3.9 mmol/l (3.5-5.1)
[2021-08-17 13:40] LABS: ACT PARTIAL THROMBO TIME 25.1 SECONDS (20.0-32.5); PROTHROMBIN TIME 10.2 SECONDS (9.0-12.5)
[2021-08-17 14:02] LABS: URINE BLOOD DIPSTICK LARGE (NEGATIVE); URINE COLOR BROWN; URINE GLUCOSE - DIPSTICK 100 mg/dL (NEGATIVE); URINE KETONE 15 mg/dL (NEGATIVE); URINE PROTEIN - DIPSTICK >=300 mg/dL (NEG-TRACE); URINE SPECIFIC GRAVITY 1.015
[2021-08-17 14:03] LABS: URINE BILIRUBIN - DIPSTICK MODERATE (NEGATIVE); URINE LEUK ESTERASE SMALL (NEGATIVE); URINE NITRITE - DIPSTICK POSITIVE (Negative); URINE SQUAMOUS EPITHELIAL CELL RARE EPI/hpf (0-FEW)
[2021-08-17 14:04] LABS: URINE AMORPH SEDIMENT MODERATE hpf (NONE-FER)
[2021-08-17 16:00] VITALS: BP 129/74
== END 2021-08-17 16:00 | disposition short-term general hospital (02) ==
LOC: ED 12:03
DX: R13.10 Dysphagia, unspecified (principal); E86.0 Dehydration; N39.0 Urinary tract infection, site not specified; E11.22 Type 2 diabetes mellitus with diabetic chronic kidney disease; I13.2 Hypertensive heart and chronic kidney disease with heart failure and with stage 5 chronic kidney disease, or end stage renal disease; I50.9 Heart failure, unspecified; N18.6 End stage renal disease; J44.9 Chronic obstructive pulmonary disease, unspecified; F17.200 Nicotine dependence, unspecified, uncomplicated; Z99.2 Dependence on renal dialysis; Z79.4 Long term (current) use of insulin; Z20.822 Contact with and (suspected) exposure to COVID-19
CPT/HCPCS: S0164

== ENCOUNTER 2022-01-19 06:36 | Observation (INO) | payer MEDICARE, MEDICAID ==
[2022-01-19] VITALS (19 sets, daily range): BP systolic 81–131; BP diastolic 50–78
[~2022-01-19] VITALS: Ht 185.4 cm; Wt 147.3 kg
[~2022-01-19 06:36] MED LIST changes: +ISOSORB MONO10 MG PO; -LANTUS SOL100 UNIT/M IJ; +LANTUS SOL100 UNIT/M SC
[2022-01-19 07:15] LABS: IMMATURE GRANULOCYTES 0.1 % (0.0-5.0); MEAN CELL VOLUME 98.3 fL CALC (80.0-100.0); MEAN CORPUSCULAR HGB CONC 32.6 g/dL CAL (32.0-36.0); NEUT# 7.7 thou/uL (1.82-7.42); RED BLOOD COUNT 3.47 mill/uL (4.70-6.10)
[2022-01-19 07:17] LABS: HEMATOCRIT 34.1 % (39.0-50.0); HEMOGLOBIN 11.1 g/dl (14.0-18.0)
[2022-01-19 07:33] LABS: ALBUMIN 4.3 g/dL (3.2-5.0); BILIRUBIN, TOTAL 0.8 mg/dL (0.0-1.4); POTASSIUM 4.2 mmol/l (3.5-5.1); TOTAL PROTEIN 7.9 g/dL (6.3-8.2)
[2022-01-19 07:35] LABS: ACT PARTIAL THROMBO TIME 29.4 SECONDS (20.0-32.5); PROTHROMBIN TIME 10.7 SECONDS (9.0-12.5)
[2022-01-19 07:40] LABS: D-DIMER 0.88 mg/L (0.19-0.60)
[2022-01-19 07:45] LABS: CREATININE 10.5 mg/dL (0.7-1.3)
[2022-01-19] MEDS ORDERED: CARVEDILOL6.25 MG PO (08:05)
[2022-01-19] MEDS ORDERED: NEURONTIN300 MG PO (08:06)
[2022-01-19] MEDS ORDERED: TRAZODONE50 MG PO (08:36)
[2022-01-19] MEDS ORDERED: OXYCODONE15 MG PO (08:38)
[2022-01-19] MEDS ORDERED: MORPHINE SUL15 MG PO (08:38)
== END 2022-01-19 17:45 | disposition left against medical advice (07) ==
LOC: ED 06:36 → ED-I 08:08 → ED 08:23 → MS2 08:24
PROVIDERS: Family Medicine; ADMIT Hospitalist; ATTEND Hospitalist
PROC: 5A1D70Z Performance of Urinary Filtration, Intermittent, Less than 6 Hours Per Day (ICD-10-PCS; principal; 2022-01-19)
DX: I13.2 Hypertensive heart and chronic kidney disease with heart failure and with stage 5 chronic kidney disease, or end stage renal disease (principal); E11.22 Type 2 diabetes mellitus with diabetic chronic kidney disease; N18.6 End stage renal disease; I50.9 Heart failure, unspecified; R07.9 Chest pain, unspecified; J44.9 Chronic obstructive pulmonary disease, unspecified; I95.3 Hypotension of hemodialysis; G47.33 Obstructive sleep apnea (adult) (pediatric); D63.1 Anemia in chronic kidney disease; E83.51 Hypocalcemia; E87.2 Acidosis; G89.29 Other chronic pain; M54.6 Pain in thoracic spine; E66.01 Morbid (severe) obesity due to excess calories; G25.81 Restless legs syndrome; F17.200 Nicotine dependence, unspecified, uncomplicated; Z99.2 Dependence on renal dialysis; Z68.41 Body mass index [BMI] 40.0-44.9, adult; Z79.891 Long term (current) use of opiate analgesic; Z79.4 Long term (current) use of insulin; Z20.822 Contact with and (suspected) exposure to COVID-19
CPT/HCPCS: J1644; Q9967

== ENCOUNTER 2022-06-05 15:23 | Observation (INO) | payer MEDICARE, MEDICAID ==
[2022-06-05] VITALS (37 sets, daily range): BP systolic 106–141; BP diastolic 35–87
[~2022-06-05] VITALS: Ht 185.4 cm; Wt 139.0 kg
[~2022-06-05 15:23] MED LIST changes: +CARVEDILOL6.25 MG PO; +MORPHINE SUL15 MG PO; +NEURONTIN300 MG PO; +OXYCODONE15 MG PO; +TRAZODONE50 MG PO
--- NOTE | 2022-06-05 15:40 | NUR ---
PT ESCORTED VIA WHEELCHAIR TO ROOM FOR ASSESSMENT OF WEAKNESS
[2022-06-05 15:54] LABS: MEAN CELL VOLUME 96.9 fL CALC (80.0-100.0); MEAN CORPUSCULAR HGB 29.6 pG CALC (26.0-32.0); MEAN CORPUSCULAR HGB CONC 30.6 g/dL CAL (32.0-36.0); NEUT# 3.38 thou/uL (1.82-7.42); RED BLOOD COUNT 2.23 mill/uL (4.70-6.10); RED CELL DISTRI WIDTH 14.6 % (11.5-15.5)
[2022-06-05 15:56] LABS: HEMATOCRIT 21.6 % (39.0-50.0); HEMOGLOBIN 6.6 g/dl (14.0-18.0)
[2022-06-05 16:09] LABS: BILIRUBIN, TOTAL 0.6 mg/dL (0.0-1.4); POTASSIUM 3.5 mmol/l (3.5-5.1); TOTAL PROTEIN 8.7 g/dL (6.3-8.2)
[2022-06-05 16:10] LABS: ALBUMIN 3.4 g/dL (3.2-5.0)
[2022-06-05 16:11] LABS: CREATININE 8.6 mg/dL (0.7-1.3)
--- NOTE | 2022-06-05 16:23 | NUR ---
PT PRESENTS TO THE ED FOR WEAKNESS. PT STATES THAT HE IS DIABETIC AND HAS NOT EATEN ANYTHING ALL DAY. PT'S BLOOD SUGAR UPON ARRIVAL IS 36.
--- NOTE | 2022-06-05 17:19 | NUR ---
DOCUMENTATION IN TAR FOR BLOOD TRANSFUSION IS INCORRECT TO DUE TO SYSTEM AUTOMATICALLY POSTING VITALS WITH INCORRECT TIME FOR 1704 FOR BEGIN TIME AND 1719 FOR FIRST 15 MIN VITALS CHECK. 1704 AND 1719 WAS MANUALLY INPUTTED AND NOT SHOWING DOCUMENTED. REPORTED TO TRINITY, CHARGE NURSE.
--- NOTE | 2022-06-05 18:09 | NUR ---
PATIENT DEPARTED ED VIA STRETCHER, ON MONITOR WITH BLOOD TRANFUSING. REPORT GIVEN TO GAUDENCIO JUNG FOR ICU ROOM 5. NAD. VITALS STABLE.
--- NOTE | 2022-06-05 18:30 | NUR ---
RECEIVED PT IN THE ICU AT 1809. PT'S VITALS STABLE AT THIS TIME. RECEIVED PT WITH FIRST UNIT INFUSING. GLUCOSE 87. PT PRESENTS AAOX3. PT PRESENTS PALE.
[2022-06-05 19:51] LABS: HEMATOCRIT 20.6 % (39.0-50.0)
[2022-06-05 19:54] LABS: HEMOGLOBIN 6.3 g/dl (14.0-18.0)
--- NOTE | 2022-06-05 20:14 | NUR ---
PATIENT A&O X3 TO PERSON, PLACE, AND TIME. 1 UNIT RBC COMPLETED. TEMP 95.7 DEGREES F DURING INFUSION. TEMP 95.8 DEGREES F 15 MINS AND 30 MINS POST 1ST UNIT INFUSION. PATIENT AND PATIENT STATED DR SELF ORDERED 2 UNITS OF RBC. CALLED DR. DAY, AND WAS INSTRUCTED TO ORDER H&H. H&H PRIOR TO 1ST UNIT WAS 6.6. H&H POST 1ST UNIT WAS 6.3. NO SIGNS OF ACTIVE BLEEDING. DR. DAY INSTRUCTED VIA VERBAL ORDER TELEPHONE READBACK TO REPEAT H&H IN 1 HOUR.
--- NOTE | 2022-06-05 20:19 | NUR ---
PATIENT COMPLAINED OF CHRONIC BACK PAIN, AND LAYING IN BED INCREASED THE BACK PAIN. PATIENT STATED HE USUALLY TAKE OXYCODONE 15 MG FOR HIS BACK PAIN. ADMINISTERED OXYCODONE 15 MG AVAILABLE PRN.
[2022-06-05 21:22] LABS: HEMATOCRIT 21.4 % (39.0-50.0)
[2022-06-05 21:24] LABS: HEMOGLOBIN 6.6 g/dl (14.0-18.0)
--- NOTE | 2022-06-05 23:01 | NUR ---
REDRAW H&H 6.6. AWAITING 2ND UNIT RBC. PATIENT SLEEPING COMFORTABLY.
[2022-06-06] VITALS (21 sets, daily range): BP systolic 93–120; BP diastolic 44–74
[2022-06-06 05:13] LABS: HEMATOCRIT 23.6 % (39.0-50.0); HEMOGLOBIN 7.4 g/dl (14.0-18.0); IMMATURE GRANULOCYTES 0.2 % (0.0-5.0); MEAN CELL VOLUME 95.5 fL CALC (80.0-100.0); MEAN CORPUSCULAR HGB CONC 31.4 g/dL CAL (32.0-36.0); NEUT# 2.93 thou/uL (1.82-7.42); RED BLOOD COUNT 2.47 mill/uL (4.70-6.10); RED CELL DISTRI WIDTH 15.3 % (11.5-15.5)
[2022-06-06 05:40] LABS: ALBUMIN 3.1 g/dL (3.2-5.0); POTASSIUM 3.7 mmol/l (3.5-5.1)
[2022-06-06 05:55] LABS: CREATININE 8.1 mg/dL (0.7-1.3)
== END 2022-06-06 09:30 | disposition home or self-care (01) ==
LOC: ED 15:23 → ED-I 16:20 → ED 16:44 → MS2 16:45 → ICU 18:16
PROVIDERS: Family Medicine; Internal Medicine; ADMIT Internal Medicine; ATTEND Internal Medicine
PROC: 30233N1 Transfusion of Nonautologous Red Blood Cells into Peripheral Vein, Percutaneous Approach (ICD-10-PCS; principal; 2022-06-05)
PROC: 30233N1 Transfusion of Nonautologous Red Blood Cells into Peripheral Vein, Percutaneous Approach (ICD-10-PCS; 2022-06-05)
DX: I13.2 Hypertensive heart and chronic kidney disease with heart failure and with stage 5 chronic kidney disease, or end stage renal disease (principal); D63.1 Anemia in chronic kidney disease; E11.22 Type 2 diabetes mellitus with diabetic chronic kidney disease; N18.6 End stage renal disease; I50.9 Heart failure, unspecified; J44.9 Chronic obstructive pulmonary disease, unspecified; E11.649 Type 2 diabetes mellitus with hypoglycemia without coma; G89.4 Chronic pain syndrome; G47.33 Obstructive sleep apnea (adult) (pediatric); E66.01 Morbid (severe) obesity due to excess calories; G25.81 Restless legs syndrome; Z86.14 Personal history of Methicillin resistant Staphylococcus aureus infection; Z87.01 Personal history of pneumonia (recurrent); Z99.2 Dependence on renal dialysis; Z79.4 Long term (current) use of insulin; Z91.81 History of falling; Z20.822 Contact with and (suspected) exposure to COVID-19
CPT/HCPCS: P9016

== ENCOUNTER 2022-06-15 16:44 | Emergency (ER) | payer MEDICARE, MEDICAID ==
[2022-06-15] VITALS (17 sets, daily range): BP systolic 82–120; BP diastolic 32–78
[~2022-06-15] VITALS: Ht 185.4 cm; Wt 104.5 kg
[2022-06-15 17:42] LABS: IMMATURE GRANULOCYTES 0.2 % (0.0-5.0); MEAN CELL VOLUME 95.9 fL CALC (80.0-100.0); MEAN CORPUSCULAR HGB 29.2 pG CALC (26.0-32.0); MEAN CORPUSCULAR HGB CONC 30.5 g/dL CAL (32.0-36.0); NEUT# 3.28 thou/uL (1.82-7.42); RED BLOOD COUNT 2.19 mill/uL (4.70-6.10); RED CELL DISTRI WIDTH 14.8 % (11.5-15.5)
[2022-06-15 17:45] LABS: HEMOGLOBIN 6.4 g/dl (14.0-18.0)
[2022-06-15 18:05] LABS: ALBUMIN 3.5 g/dL (3.2-5.0); BILIRUBIN, TOTAL 0.5 mg/dL (0.0-1.4); POTASSIUM 4.2 mmol/l (3.5-5.1); TOTAL PROTEIN 8.6 g/dL (6.3-8.2)
== END 2022-06-15 20:56 | disposition home or self-care (01) ==
LOC: ED 16:44
PROVIDERS: Family Medicine
PROC: 30233N1 Transfusion of Nonautologous Red Blood Cells into Peripheral Vein, Percutaneous Approach (ICD-10-PCS; principal; 2022-06-15)
DX: D64.9 Anemia, unspecified (principal); N18.6 End stage renal disease; E11.22 Type 2 diabetes mellitus with diabetic chronic kidney disease; I13.2 Hypertensive heart and chronic kidney disease with heart failure and with stage 5 chronic kidney disease, or end stage renal disease; I50.9 Heart failure, unspecified; J44.9 Chronic obstructive pulmonary disease, unspecified; E66.01 Morbid (severe) obesity due to excess calories; F17.200 Nicotine dependence, unspecified, uncomplicated; Z99.2 Dependence on renal dialysis; Z91.81 History of falling; Z79.4 Long term (current) use of insulin
CPT/HCPCS: P9016

== ENCOUNTER 2022-06-22 14:46 | Emergency (ER) | payer MEDICARE, MEDICAID ==
[~2022-06-22] VITALS: Ht 185.4 cm; Wt 149.2 kg
[2022-06-22] VITALS (8 sets, daily range): BP systolic 105–128; BP diastolic 61–87
[2022-06-22 15:38] LABS: HEMATOCRIT 22.7 % (39.0-50.0); IMMATURE GRANULOCYTES 0.2 % (0.0-5.0); MEAN CELL VOLUME 96.6 fL CALC (80.0-100.0); MEAN CORPUSCULAR HGB 28.5 pG CALC (26.0-32.0); MEAN CORPUSCULAR HGB CONC 29.5 g/dL CAL (32.0-36.0); NEUT# 3.59 thou/uL (1.82-7.42); RED BLOOD COUNT 2.35 mill/uL (4.70-6.10); RED CELL DISTRI WIDTH 15.2 % (11.5-15.5)
[2022-06-22 15:40] LABS: HEMOGLOBIN 6.7 g/dl (14.0-18.0)
[2022-06-22 15:56] LABS: INTERNATIONAL NORMALIZED RATIO 1.1 RATIO (0.7-1.3)
[2022-06-22 16:02] LABS: ALKALINE PHOSPHATASE 68 u/l (38-126); ANION GAP 17 (6-22 (CALC)); BILIRUBIN, TOTAL 0.5 mg/dL (0.0-1.4); BUN 50 mg/dL (9-20); CARBON DIOXIDE 29 mmol/l (22-30); CHLORIDE 97 mmol/l (95-108); SGOT/AST 16 u/l (17-59); SODIUM 138 mmol/l (137-146); TOTAL PROTEIN 8.7 g/dL (6.3-8.2)
[2022-06-22 16:16] LABS: ALBUMIN 3.7 g/dL (3.2-5.0); BUN/CREATININE RATIO 6 (12-20 (CALC)); CREATININE 8.2 mg/dL (0.7-1.3); GFR FOR AFR.AMER. 9 ML/MIN (>=60 (CALC)); GFR OTHER RACES 7 ML/MIN (>=60 (CALC))
== END 2022-06-22 19:53 | disposition short-term general hospital (02) ==
LOC: ED 14:46
PROVIDERS: Family Medicine
PROC: 02HV33Z Insertion of Infusion Device into Superior Vena Cava, Percutaneous Approach (ICD-10-PCS; principal; 2022-06-22)
DX: A41.9 Sepsis, unspecified organism (principal); E11.69 Type 2 diabetes mellitus with other specified complication; M86.8X7 Other osteomyelitis, ankle and foot; D64.9 Anemia, unspecified; E11.621 Type 2 diabetes mellitus with foot ulcer; L97.429 Non-pressure chronic ulcer of left heel and midfoot with unspecified severity; E11.610 Type 2 diabetes mellitus with diabetic neuropathic arthropathy; I13.2 Hypertensive heart and chronic kidney disease with heart failure and with stage 5 chronic kidney disease, or end stage renal disease; E11.22 Type 2 diabetes mellitus with diabetic chronic kidney disease; N18.6 End stage renal disease; I50.9 Heart failure, unspecified; E66.01 Morbid (severe) obesity due to excess calories; J44.9 Chronic obstructive pulmonary disease, unspecified; F17.200 Nicotine dependence, unspecified, uncomplicated; B95.62 Methicillin resistant Staphylococcus aureus infection as the cause of diseases classified elsewhere; Z99.2 Dependence on renal dialysis; Z79.4 Long term (current) use of insulin; Z20.822 Contact with and (suspected) exposure to COVID-19; L97.511 Non-pressure chronic ulcer of other part of right foot limited to breakdown of skin; L97.529 Non-pressure chronic ulcer of other part of left foot with unspecified severity; M25.50 Pain in unspecified joint

== ENCOUNTER 2023-01-10 16:08 | Observation (INO) | payer MEDICARE, MEDICAID ==
[2023-01-10] VITALS (23 sets, daily range): BP systolic 78–114; BP diastolic 51–74
[~2023-01-10] VITALS: Ht 185.4 cm; Wt 114.8 kg
[2023-01-10] MEDS ORDERED: NEURONTIN300 MG PO (16:35)
[2023-01-10] MEDS ORDERED: VELPHORO500 MG (16:36)
[2023-01-10] MEDS ORDERED: MIDODRINE HYDRO10 MG PO (16:38)
[2023-01-10 16:53] LABS: BASO% 0.2 % (0-3); IMMATURE GRANULOCYTES 1.4 % (0.0-5.0); LYMPH% 11.7 % (15-41); MEAN CORPUSCULAR HGB 33.2 pG CALC (26.0-32.0); MEAN CORPUSCULAR HGB CONC 33.2 g/dL CAL (32.0-36.0); MONO% 8.1 % (2-13); NEUT# 9.5 thou/uL (1.82-7.42); NEUT% 76.6 % (42-76); RED BLOOD COUNT 3.95 mill/uL (4.70-6.10); RED CELL DISTRI WIDTH 16.9 % (11.5-15.5)
[2023-01-10 16:54] LABS: HEMATOCRIT 39.5 % (39.0-50.0); HEMOGLOBIN 13.1 g/dl (14.0-18.0)
[2023-01-10 17:20] LABS: ALBUMIN 4.7 g/dL (3.2-5.0); BILIRUBIN, TOTAL 1.2 mg/dL (0.2-1.3); CREATININE 10.7 mg/dL (0.7-1.3); POTASSIUM 3.3 mmol/l (3.5-5.1); TOTAL PROTEIN 9.9 g/dL (6.3-8.2)
[2023-01-11] VITALS (8 sets, daily range): BP systolic 79–110; BP diastolic 40–67
[2023-01-11 06:40] LABS: BASO% 0.7 % (0-3); EOS% 5.4 % (0-8); HEMATOCRIT 34.9 % (39.0-50.0); HEMOGLOBIN 11.6 g/dl (14.0-18.0); LYMPH% 13.4 % (15-41); MEAN CELL VOLUME 101.5 fL CALC (80.0-100.0); MEAN CORPUSCULAR HGB 33.7 pG CALC (26.0-32.0); MEAN CORPUSCULAR HGB CONC 33.2 g/dL CAL (32.0-36.0); MONO% 8.4 % (2-13); NEUT# 5.43 thou/uL (1.82-7.42); NEUT% 71.1 % (42-76); RED BLOOD COUNT 3.44 mill/uL (4.70-6.10)
[2023-01-11 06:51] LABS: POTASSIUM 3.3 mmol/l (3.5-5.1)
[2023-01-11 07:07] LABS: ALBUMIN 3.7 g/dL (3.2-5.0); CREATININE 10.6 mg/dL (0.7-1.3); TOTAL PROTEIN 7.1 g/dL (6.3-8.2)
[2023-01-12 01:01] VITALS: BP 89/49
[2023-01-12 05:19] VITALS: BP 88/58
[2023-01-12 06:13] LABS: BASO% 0.8 % (0-3); EOS% 5.1 % (0-8); HEMATOCRIT 37.8 % (39.0-50.0); HEMOGLOBIN 12.4 g/dl (14.0-18.0); IMMATURE GRANULOCYTES 0.8 % (0.0-5.0); LYMPH% 19.6 % (15-41); MEAN CELL VOLUME 101.6 fL CALC (80.0-100.0); MEAN CORPUSCULAR HGB 33.3 pG CALC (26.0-32.0); MEAN CORPUSCULAR HGB CONC 32.8 g/dL CAL (32.0-36.0); MONO% 10.4 % (2-13); NEUT# 4.85 thou/uL (1.82-7.42); NEUT% 63.3 % (42-76); RED BLOOD COUNT 3.72 mill/uL (4.70-6.10); RED CELL DISTRI WIDTH 16.8 % (11.5-15.5)
[2023-01-12 06:25] LABS: ALBUMIN 4.2 g/dL (3.2-5.0); BILIRUBIN, TOTAL 1.2 mg/dL (0.2-1.3); POTASSIUM 3.3 mmol/l (3.5-5.1); TOTAL PROTEIN 8.4 g/dL (6.3-8.2)
[2023-01-12 06:27] LABS: CREATININE 8.6 mg/dL (0.7-1.3)
[2023-01-12 08:15] VITALS: BP 90/53
[2023-01-12] MEDS ORDERED: TRAZODONE50 MG PO (08:17)
[2023-01-12] MEDS ORDERED: ESCITALOPRAM OX20 MG PO (08:19)
[2023-01-12 10:55] VITALS: BP 97/53
[2023-01-12] MEDS ORDERED: VANTIN200 M1 PO (11:15)
[2023-01-12] MEDS ORDERED: ZITHROMAX250 MG PO (11:15)
== END 2023-01-12 14:30 | disposition home or self-care (01) ==
LOC: ED 16:08 → MS2 19:04
PROVIDERS: Family Medicine; Nurse Practitioner Family; ADMIT Internal Medicine; ATTEND Internal Medicine
PROC: 05HM33Z Insertion of Infusion Device into Right Internal Jugular Vein, Percutaneous Approach (ICD-10-PCS; principal; 2023-01-10)
PROC: 5A1D70Z Performance of Urinary Filtration, Intermittent, Less than 6 Hours Per Day (ICD-10-PCS; 2023-01-11)
DX: A41.9 Sepsis, unspecified organism (principal); J18.9 Pneumonia, unspecified organism; I95.9 Hypotension, unspecified; J44.0 Chronic obstructive pulmonary disease with (acute) lower respiratory infection; I13.2 Hypertensive heart and chronic kidney disease with heart failure and with stage 5 chronic kidney disease, or end stage renal disease; E11.22 Type 2 diabetes mellitus with diabetic chronic kidney disease; N18.6 End stage renal disease; I50.9 Heart failure, unspecified; E87.6 Hypokalemia; E86.0 Dehydration; E87.1 Hypo-osmolality and hyponatremia; K74.60 Unspecified cirrhosis of liver; N25.81 Secondary hyperparathyroidism of renal origin; D63.1 Anemia in chronic kidney disease; M51.36 Other intervertebral disc degeneration, lumbar region; G47.33 Obstructive sleep apnea (adult) (pediatric); E66.01 Morbid (severe) obesity due to excess calories; G25.81 Restless legs syndrome; Z99.2 Dependence on renal dialysis; Z79.4 Long term (current) use of insulin; Z68.33 Body mass index [BMI] 33.0-33.9, adult; Z91.81 History of falling; Z87.01 Personal history of pneumonia (recurrent); Z20.822 Contact with and (suspected) exposure to COVID-19

== ENCOUNTER 2023-08-23 13:17 | Emergency (ER) | payer MEDICARE, MEDICAID ==
[~2023-08-23] VITALS: Ht 185.4 cm; Wt 113.0 kg
[2023-08-23] VITALS (7 sets, daily range): BP systolic 104–120; BP diastolic 63–76
[~2023-08-23 13:17] MED LIST changes: +ESCITALOPRAM OX20 MG PO; +LEVOFLOXACIN500MG PO; +MIDODRINE HYDRO10 MG PO; +VANTIN200 M1 PO; +VELPHORO500 MG; +ZITHROMAX250 MG PO
[2023-08-23 13:55] LABS: BASO% 1.4 % (0-3); EOS% 2.2 % (0-8); HEMOGLOBIN 8.7 g/dl (14.0-18.0); IMMATURE GRANULOCYTES 0.2 % (0.0-5.0); LYMPH% 17.4 % (15-41); MEAN CELL VOLUME 102.8 fL CALC (80.0-100.0); MEAN CORPUSCULAR HGB 30.9 pG CALC (26.0-32.0); MONO% 5.4 % (2-13); NEUT# 4.06 thou/uL (1.82-7.42); NEUT% 73.4 % (42-76); RED BLOOD COUNT 2.82 mill/uL (4.70-6.10); RED CELL DISTRI WIDTH 15.6 % (11.5-15.5)
[2023-08-23 14:09] LABS: ALBUMIN 4.8 g/dL (3.2-5.0); ALKALINE PHOSPHATASE 58 u/l (38-126); CARBON DIOXIDE 21 mmol/l (22-30); CHLORIDE 97 mmol/l (95-108); SGOT/AST 26 u/l (17-59); SODIUM 137 mmol/l (137-146)
[2023-08-23 14:16] LABS: ANION GAP 26 (6-22 (CALC)); BUN/CREATININE RATIO 8 (12-20 (CALC)); GFR FOR AFR.AMER. 7 ML/MIN (>=60 (CALC)); GFR OTHER RACES 5 ML/MIN (>=60 (CALC))
[2023-08-23 14:17] LABS: BILIRUBIN, TOTAL 0.8 mg/dL (0.2-1.3); BUN 82 mg/dL (9-20); CREATININE 10.5 mg/dL (0.7-1.3); POTASSIUM 7.1 mmol/l (3.5-5.1); TOTAL PROTEIN 8.7 g/dL (6.3-8.2)
--- NOTE | 2023-08-26 08:56 | NUR ---
Blood culture results of 1 of 4 growing MSSA called to pt's PCP, Dr Calloway. Pt had already been discharged from [facility] at the time of the result. Dr Calloway will follow-up with siva and Jamil, as pt receives dialysis.
== END 2023-08-23 15:47 | disposition short-term general hospital (02) ==
LOC: ED 13:17
PROVIDERS: Family Medicine
DX: I13.2 Hypertensive heart and chronic kidney disease with heart failure and with stage 5 chronic kidney disease, or end stage renal disease (principal); E11.22 Type 2 diabetes mellitus with diabetic chronic kidney disease; N18.6 End stage renal disease; I50.9 Heart failure, unspecified; E66.01 Morbid (severe) obesity due to excess calories; J44.9 Chronic obstructive pulmonary disease, unspecified; E87.5 Hyperkalemia; Z99.2 Dependence on renal dialysis; Z79.4 Long term (current) use of insulin; Z20.822 Contact with and (suspected) exposure to COVID-19

== ENCOUNTER 2023-09-07 11:54 | Emergency (ER) | payer MEDICARE, MEDICAID ==
[~2023-09-07] VITALS: Ht 185.4 cm; Wt 160.0 kg
[2023-09-07] VITALS (8 sets, daily range): BP systolic 96–136; BP diastolic 35–87
[2023-09-07 12:56] LABS: BASO% 0.8 % (0-3); EOS% 4.2 % (0-8); HEMATOCRIT 24.7 % (39.0-50.0); HEMOGLOBIN 7.7 g/dl (14.0-18.0); LYMPH% 18.7 % (15-41); MEAN CELL VOLUME 100.8 fL CALC (80.0-100.0); MEAN CORPUSCULAR HGB 31.4 pG CALC (26.0-32.0); MEAN CORPUSCULAR HGB CONC 31.2 g/dL CAL (32.0-36.0); MONO% 7.3 % (2-13); NEUT# 2.66 thou/uL (1.82-7.42); RED BLOOD COUNT 2.45 mill/uL (4.70-6.10); RED CELL DISTRI WIDTH 15.6 % (11.5-15.5)
[2023-09-07 13:39] LABS: ALBUMIN 4.3 g/dL (3.2-5.0); BILIRUBIN, TOTAL 0.7 mg/dL (0.2-1.3); TOTAL PROTEIN 7.7 g/dL (6.3-8.2)
[2023-09-07 14:15] LABS: CREATININE 12.3 mg/dL (0.7-1.3)
[2023-09-07] MEDS ORDERED: SPS15 GM/601 PO (14:39)
[2023-09-07] MEDS ORDERED: PERCOCET 10/31 COMBO PO (15:03)
== END 2023-09-07 17:36 | disposition left against medical advice (07) ==
LOC: ED 11:54
PROVIDERS: Family Medicine
DX: E87.5 Hyperkalemia (principal); I13.2 Hypertensive heart and chronic kidney disease with heart failure and with stage 5 chronic kidney disease, or end stage renal disease; E11.22 Type 2 diabetes mellitus with diabetic chronic kidney disease; N18.6 End stage renal disease; I50.9 Heart failure, unspecified; Z99.2 Dependence on renal dialysis; E66.01 Morbid (severe) obesity due to excess calories; J44.9 Chronic obstructive pulmonary disease, unspecified; Z91.81 History of falling; Z79.4 Long term (current) use of insulin; Z72.0 Tobacco use; Z20.822 Contact with and (suspected) exposure to COVID-19; Z53.29 Procedure and treatment not carried out because of patient's decision for other reasons

== ENCOUNTER 2023-09-08 09:24 | Emergency (ER) | payer MEDICARE, MEDICAID ==
[~2023-09-08] VITALS: Ht 185.4 cm; Wt 117.0 kg
[~2023-09-08 09:24] MED LIST changes: +PERCOCET 10/31 COMBO PO; +SPS15 GM/601 PO
[2023-09-08 10:05] LABS: BASO% 1.1 % (0-3); EOS% 5.1 % (0-8); HEMATOCRIT 23.7 % (39.0-50.0); HEMOGLOBIN 7.6 g/dl (14.0-18.0); LYMPH% 17.7 % (15-41); MEAN CELL VOLUME 101.3 fL CALC (80.0-100.0); MEAN CORPUSCULAR HGB 32.5 pG CALC (26.0-32.0); MEAN CORPUSCULAR HGB CONC 32.1 g/dL CAL (32.0-36.0); MONO% 7.9 % (2-13); NEUT# 2.43 thou/uL (1.82-7.42); NEUT% 68.2 % (42-76); RED BLOOD COUNT 2.34 mill/uL (4.70-6.10); RED CELL DISTRI WIDTH 15.7 % (11.5-15.5)
[2023-09-08 10:10] VITALS: BP 104/60
[2023-09-08 10:15] VITALS: BP 104/63
[2023-09-08 10:30] VITALS: BP 104/60
[2023-09-08 10:32] LABS: ALBUMIN 4.4 g/dL (3.2-5.0); BILIRUBIN, TOTAL 0.8 mg/dL (0.2-1.3); POTASSIUM 4.9 mmol/l (3.5-5.1); TOTAL PROTEIN 7.8 g/dL (6.3-8.2)
[2023-09-08 10:37] LABS: CREATININE 9.4 mg/dL (0.7-1.3)
[2023-09-08 10:45] VITALS: BP 115/65
[2023-09-08 11:01] VITALS: BP 100/59
[2023-09-08 11:06] VITALS: BP 100/59
== END 2023-09-08 11:10 | disposition home or self-care (01) ==
LOC: ED 09:24
PROVIDERS: Family Medicine
DX: I13.2 Hypertensive heart and chronic kidney disease with heart failure and with stage 5 chronic kidney disease, or end stage renal disease (principal); E11.22 Type 2 diabetes mellitus with diabetic chronic kidney disease; N18.6 End stage renal disease; I50.9 Heart failure, unspecified; Z99.2 Dependence on renal dialysis; J44.9 Chronic obstructive pulmonary disease, unspecified; E66.01 Morbid (severe) obesity due to excess calories; Z91.81 History of falling; Z79.4 Long term (current) use of insulin